=== PATIENT | male | born 1950 | race Caucasian/White ===

== ENCOUNTER 2023-10-03 04:10 | Inpatient (IN) | payer MEDICARE, OTHER, SELFPAY ==
[2023-10-03] VITALS (20 sets, daily range): BP systolic 80–121; BP diastolic 54–88; PULSE 66–80; O2SAT 100; BMI 26.5; BMI 25.4
[2023-10-03 01:17] LABS: % Basophils 0.4 % (0-2); % Eosinophils 1.9 % (0-6); % Immature Granulocytes 0.4 % (0-0.5); % Lymphocytes 17.2 % (20.5-51.1); % Neutrophils 70.1 % (42.2-75.2); Absolute Basophils 0.1 10^3/uL (0-0.2); Absolute Eosinophils 0.3 10^3/uL (0-0.7); Absolute Immature Granulocytes 0.1 10^3/uL (0-0.05); Absolute Lymphocytes 2.8 10^3/uL (1.2-3.4); Absolute Monocytes 1.6 10^3/uL (0.1-0.6); Absolute Neutrophils 11.2 10^3/uL (1.4-6.5); Hematocrit 37.7 % (39.0-52.0); Hemoglobin 13.2 g/dL (13.0-18.0); Mean Corpuscular Hgb 31.4 pg (27.0-31.0); Mean Corpuscular Volume 89.5 fL (80.0-94.0); Mean Platelet Volume 10.5 fL (7.4-10.4); Nucleated Red Blood Cells % 0 % (-); Platelet Count 183 10^3/uL (130-400); Red Blood Cell Count 4.21 10^6/uL (4.70-6.10)
--- NOTE | 2023-10-03 01:20 | ED.GENMED ---
History of Present Illness
General
Chief Complaint: Chest Pain
Source: patient and ambulance crew
Exam Limitations: none
Time Seen by Provider: 10/03/23 01:07
Nursing documentation reviewed up to this point in time: agreed with
Travel History
Have you had any contact with someone who has COVID-19?: No
Do you have any symptoms of coronavirus? Fever > 100 degrees, chills, cough, shortness of breath, sore throat, loss of taste or smell, muscle aches, or headache?: No
History of Present Illness
History of Present Illness:
This a pleasant 33-year-old male presents via EMS from home with due to chest pain. He states that the pain began around 2 PM yesterday and reports that it radiates through to his back. Patient does report that he has been having some dyspnea on
exertion but that has been going on for several months. 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 Patient does have high blood pressure and high cholesterol for which she is treated. He does
see Dr. Levin.
Past History
Past History
ED Past Medical History: HTN and Hypercholesterolemia
ED Past Surgical History: Other (left forearm degloving)
Social History
Tobacco: Non-smoker
Alcohol: None
Drug: None
Personal:
Living: with family
Employment: Employed
Family History
Family History: Other (Noncontributory)
Review of Systems
Review of Systems
Allergies reviewed?: Yes
All Other Systems: ROS reviewed and negative except as documented in HPI and ROS
Constitutional: Reports no symptoms
EENT: Reports no symptoms
Respiratory: Reports no symptoms
Cardiac: Reports chest pain and syncope
ABD/GI: Reports no symptoms
: Reports no symptoms
Musculoskeletal: Reports no symptoms
Skin: Reports no symptoms
Neurological: Reports no symptoms
Endocrine: Reports no symptoms
Hematologic/Lymphatic: Reports no symptoms
Psychiatric: Reports no symptoms
Phy Exam
General Physical Exam
General Presentation: well appearing and no apparent distress
General Skin: warm and dry
General Habitus: normal
General Mental: alert
General Hydration: appears well hydrated
ENT Exam
ENT Exam: EOMI, pharynx normal, neck supple and normocephalic
Eye Exam
Eye Exam: PERRL, cornea clear and conjunctiva normal
Cardiovascular Exam
Cardiovascular Exam: regular rate/rhythm, no edema, no murmur and normal peripheral pulses
Pulmonary Exam
Pulmonary Exam: lungs clear, no respiratory distress, no rales, no crackles, no rhonchi, no stridor, no wheezing and no cough
Gastrointestinal Exam
Gastrointestinal Exam: normal bowel sounds, non tender, soft, no organomegaly, no pulsatile mass and non distended
Neurological Exam
Neurological Exam: alert, oriented x3, no motor deficits and speech normal
Musculoskeletal Exam
Musculoskeletal Exam: full ROM and no edema
Skin Exam
Skin Exam: normal color, warm/dry, no rash and no petechia
Psychiatric Exam
Psychiatric Exam: normal mood/affect
Scores
Heart Score for Chest Pain Patients
STEMI patient?: No
History: Moderately Suspicious
ECG: Normal
Age: >/= 65 years
Risk Factors: 1 or 2 Risk Factors
Troponin: </= Normal Limit
Heart Score for Chest Pain Patients: 4
Heart Score Risk: 20.3% MACE over next 6 weeks
Course
Orders/Labs/Results
Orders:
Orders
10/03/23 01:05
Electrocardiogram (*1) Urgent
Reason for Study: Chest Pain
EKG- Treatment ONCE
10/03/23 01:11
Complete Blood Count/With Diff Urgent
Comprehensive Metabolic Panel Urgent
NT-proBNP Urgent
PTT Urgent
Prothrombin Time Urgent
TSH Urgent
Comment: ADD ON
Troponin I Urgent
10/03/23 01:17
Interrogate Pacemaker- Treatment ONCE
Comment: medtronic
10/03/23 01:18
Electrocardiogram (*1) Stat
Reason for Study: Other
Other Reason for Exam: chest pain
Cardiac Monitoring- Treatment ONCE
10/03/23 01:19
CT Chest Pe Study Urgent
Comment:
Reason For Exam: cp, dyspnea, rad toback
10/03/23 01:21
Add On- LAB Urgent
Tests Added?: tsh
10/03/23 02:33
Ondansetron Injectable [Zofran] 4 mg .ROUTE .STK-MED ONE
10/03/23 02:34
Ondansetron Injectable [Zofran] 4 mg IV NOW STA
10/03/23 02:37
Electrocardiogram (*1) Urgent
Reason for Study: Chest Pain
EKG- Treatment ONCE
10/03/23 02:42
Troponin I Urgent
10/03/23 03:53
Admit/Transfer Patient As Directed
Co-Sign Provider:
Level of Care: Inpatient admission
Assign to:: IVU
Physician / Group: Mario
Diagnosis: Syncope
Reason for Hospitalization: Syncope
Expected length of stay greater than two midnights?: Yes
ELOS- Estimated Length of Stay in days: 2
I certify the patient meets the requirements for IP care: Yes
0.9% Sodium Chloride 1000 ml [Nss] 1,000 ml IV BOLUS
0.9% Sodium Chloride 1000 ml [Nss] 1,000 ml IV BOLUS
10/03/23 03:54
Code Status As Directed
Resuscitation Status: Full Code
10/03/23 06:22
0.9% Sodium Chloride 1000 ml [Nss] 1,000 ml IV 100 mls/hr
Acetaminophen [Tylenol] 650 mg PO Q4HPRN PRN
Ondansetron Injectable [Zofran] 4 mg IV Q6HPRN PRN
10/03/23 06:22
Echo 2D MMode Doppler [Echo 2D MMode Color/Doppler] Routine
Reason for Study: Pericardial Effusion, Syncope
CARDIOLOGY CONSULT Routine
Consulting Provider: Edmundo Dillon
Was physician already notified: No
Reason for consult: Chest Pain, Syncope
Consult Notification Routine
Specialty to Notify: Cardiology
Free T4 Routine
Activity As Directed
Activity Level: Ambulate
With Assistance
Bladder Scan As Directed
Follow Bladder Retention/Intermittent Cath Algorithm?: Yes
PRN if no void in __ hours: 6
Frequency: Per Retention Algorithm
If Bladder Scan Result >: 400
then:: Straight cath
EKG with chest pain [ECG as needed] As Directed
ECG as needed for:: Chest Pain
I/O [Intake/ Output] As Directed
Frequency: Per unit guidelines
Orthostatic Vital Signs As Directed
Orthostatic VS Frequency: BID
Pneumatic Compression Sleeves As Directed
Type: Knee high
Straight Cath As Directed
Frequency: Per Retention Algorithm
Additional Instructions: straight cath as needed per acute urinary retention algorithm for 24 hrs
Additional Instructions: for bladder scan greater than 400 mL
Vital Signs As Directed
Frequency: Per unit guidelines
Weight As Directed
Frequency: Daily
Oxygen Therapy [O2 Therapy] [RESP] Routine
Titrate/Wean O2 to maintain O2 sat greater than (%): 94
Ot Eval And Treat Routine
PT Consult [Pt Eval And Treat] Routine
Activity Level: Ambulate
With Assistance
DX Deep Vein Thrombosis Video Routine
10/03/23 08:00
Aspirin Chewable [Low Strength Aspirin] 81 mg PO DAILY
10/03/23 18:00
Atorvastatin [Lipitor] 40 mg PO QPM
10/03/23 22:00
Finasteride [Proscar] 5 mg PO HS
Multivitamin [Theragran] 1 tablet PO HS
10/04/23 06:00
EKG [Electrocardiogram (*1)] IN AM
Reason for Study: Chest Pain
NPO
Allow oral meds: Yes
Allow clear liquids: Sips of Clears
Basic Metabolic Panel IN AM
Complete Blood Count/No Diff IN AM
Magnesium IN AM
Troponin I IN AM
Abnormal Lab Results
10/03/23
01:11
WBC 16.0 H 10^3/uL
(4.8-10.8)
RBC 4.21 L 10^6/uL
(4.70-6.10)
Hct 37.7 L %
(39.0-52.0)
MCH 31.4 H pg
(27.0-31.0)
MPV 10.5 H fL
(7.4-10.4)
Abs Immat Gran (auto) 0.1 H 10^3/uL
(0-0.05)
Absolute Neuts (auto) 11.2 H 10^3/uL
(1.4-6.5)
Absolute Monos (auto) 1.6 H 10^3/uL
(0.1-0.6)
Lymphocytes % 17.2 L %
(20.5-51.1)
Monocytes % 10.0 H %
(1.7-9.3)
PT 14.7 H Sec
(11.4-14.6)
BUN 21 H mg/dl
(9-20)
Glucose 160 H mg/dl
(70-99)
TSH 6.09 H uIU/ml
(0.47-4.68)
10/03/23 01:11
10/03/23 01:11
Vital Signs
Initial and Last Documented VS:
Initial Vital Signs
Pulse Resp BP Pulse Ox
60 16 112/71 100
10/03/23 01:05 10/03/23 01:05 10/03/23 01:05 10/03/23 01:05
Last Documented Vital Signs
Temp Pulse Resp BP Pulse Ox
97.8 F 68 20 86/71 99
10/03/23 06:30 10/03/23 06:30 10/03/23 06:30 10/03/23 06:00 10/03/23 06:30
*Critical Care Note
Total Time (30-74mins, 75-104mins- exclusive of procedures): Not Applicable
Update Note
Update Note:
CTA CHEST
IMPRESSION:
1. Adequate technical study. No acute pulmonary embolism.
2. No thoracic aortic aneurysm or acute aortic dissection. Bibasilar atelectasis.
Incidentals:
-Calcified coronary atherosclerosis. Moderate pericardial effusion measuring up to 9 mm.
- No acute osseous abnormality. Small hiatal hernia
- No acute abnormality within the visualized abdomen. Hepatic hypodensities, not well characterized
- No thoracic lymphadenopathy or suspicious lymph nodes.
Spoke with [employer] who stated that patient did have a brief episode of self-limited V. tach at the time of the syncopal episode.
ED Attending Note
-
Portions of this chart may have been created with voice recognition software.� Occasional wrong word or��sound alike� substitutions may have occurred due to the inherent limitations of voice recognition software.
Discharge Plan
Departure
Patient Disposition: Admit
Date of Disposition: 10/03/23
Time of Disposition: 03:09
Admit to: Telemetry
Presentation/result/management discussed w/ accepting MD/DO: Hospitalist
Discharge Problem:
Syncope
Interventions
Interventions:
*Risk Screen - Suicide Last Done: 10/03/23 01:13
*General Assessment Last Done: 10/03/23 01:12
*Neglect/Abuse Screening Last Done: 10/03/23 01:13
ED- Fall Risk Assessment Last Done: 10/03/23 01:13
*ED COVID-19 Vaccine History Last Done: 10/03/23 01:13
*Nursing Disposition Last Done: 10/03/23 06:27
ED- Cardiac Assessment Last Done: 10/03/23 01:33
Discharge Date and Time
Discharge Date/Time: 10/03/23 06:28
[2023-10-03 01:30] LABS: INR 1.17; PT 14.7 Sec (11.4-14.6)
[2023-10-03 01:31] LABS: APTT 27.6 Sec (23.4-35.0)
[2023-10-03 01:32] LABS: ALT (SGPT) 40 U/L (0-50); AST (SGOT) 29 U/L (17-59); Alkaline Phosphatase 82 U/L (38-126); Blood Urea Nitrogen 21 mg/dl (9-20); Calcium 9.3 mg/dl (8.4-10.2); Carbon Dioxide 28 mmol/L (22-30); Chloride 103 mmol/L (98-107); Estimated Creatinine Clearance 58 ml/min; Glucose 160 mg/dl (70-99); Sodium 137 mmol/L (135-145); Total Bilirubin 0.5 mg/dl (0.2-1.3); Total Protein 6.5 g/dl (6.3-8.2); eGFR > 60.00
[2023-10-03 01:44] LABS: Troponin I < 0.012 ng/ml
[2023-10-03 02:02] LABS: NT-proBNP 41.3 pg/ml
[2023-10-03 02:27] LABS: TSH 6.09 uIU/ml (0.47-4.68)
[2023-10-03] MEDS: ZOFRAN 4 MG IV (02:34)
[2023-10-03 03:12] LABS: Troponin I < 0.012 ng/ml
[2023-10-03] MEDS: NSS 1000 IV ×2 (03:53→06:42)
--- NOTE | 2023-10-03 03:58 | HPS.HSE ---
Family Physician
-
Family Physician: Adithya Ohara
Chief Complaint
-
Lightheaded, Nausea
History of Present Illness
Patient is a 73y M with PMH significant for symptomatic bradycardia s/p PPM who presents to ED complaining of chest pain, lightheadedness and nausea. History obtained from patient and his at the bedside. Patient states that he was working
on his computer yesterday afternoon - and was getting frustrated as will happen with computers - when he developed a pain in the back between his shoulder blades. This ultimately resolved. Later that evening while sitting and watching the football
game, he developed back pain that radiated anteriorly to the chest. This also lasted for several minutes before resolving.
He was preparing for bed around 11:30 PM when he began to feel lightheaded. notes that he was pale and diaphoretic. He became nauseated and had an episode of emesis. Patient was helped to bed where he lie down and felt somewhat improved. he
did not lose consciousness. Patient presented to the ED for further evaluation. While here in the ED, patient has had several additional episodes of lightheadedness, nausea, diaphoresis. He has some upper chest tightness here, but not the chest
pain or back pain he felt earlier today.
At the time of my exam, patient notes that he feels 'fine'. He is able to sit upright without lightheadedness / dizziness. He has no chest pain, nausea, etc.
His BP is presently in the 80s systolic despite his lack of symptoms.
Patient denies any prior history of similar symptoms.
He denies any prior h/o [place]. His PPM was placed 12/2022 after patient had an episode of significant pause / asystole during cataract surgery 07/2022.
Patient notes that he had some loose stools / diarrhea on Tuesday of this week. This was after eating out at a restaurant. His symptoms lasted about 24 hours and have since fully resolved.
No other recent illness, fevers / chills, cough, etc.
Medical History
Past Medical History
Past Medical History: Reports Other
Additional Past Medical History:
Sick Sinus Syndrome
Hypertension
RBBB
BPH
Past Surgical History: Reports Other
Additional Past Surgical History:
LUE Reconstructive Surgery s/p Trauma
PPM Placement
Social History
Tobacco: Non-smoker
Alcohol: Occasional (Very rare.)
Drug: None
Family History
Family History: Not pertinent
Allergies / Home Medications
Allergies reflects when Allergies were last updated in [email or web address].
Home Medications with original date entered in [email or web address]
Allergy/Medication List:
Allergies
Allergy/AdvReac Type Severity Reaction Status Date / Time
No Known Allergies Allergy Verified 01/03/23 13:06
Home Medications
finasteride 5 mg tablet 5 mg PO HS Urinary issue 08/09/22
lisinopril 10 mg tablet 10 mg PO HS Blood pressure 08/09/22
multivitamin 1 tab PO HS 12/21/22
atorvastatin 40 mg tablet 40 mg PO QPM 10/03/23
Review of Systems
-
History Source: Patient
A 12 point ROS was completed and negative except as noted: Yes
Constitutional: Denies Fever or Chills
EENT: Denies Sore Throat
Respiratory: Reports Trouble Breathing; Denies Cough
Cardiac: Reports Chest Pain, Diaphoresis and Syncope (Near-syncope); Denies Palpitations
Abdomen/GI: Reports Nausea and Vomiting; Denies Abdominal Pain, Bloody Stools or Black Stools
: Denies Dysuria, Frequency or Flank Pain
Musculoskeletal: Denies Joint Pain or Edema
Neurological: Reports Dizzy; Denies Headache, Weakness or Numbness
Psych: Denies Depression or Anxiety
Physical Exam
Vital Signs
Vital Signs
Pulse Resp BP Pulse Ox
71 19 84/54 99
10/03/23 03:45 10/03/23 03:45 10/03/23 03:32 10/03/23 03:45
Physical Exam
General: Other (73y M in no acute distress.)
HEENT: Moist mucous membranes and PERRLA
Respiratory: Clear; No Wheezes, Rales or Rhonchi
Cardiac: S1/S2 and Regular Rhythm; No Murmur
GI: Soft, Non Tender, Non Distended and Normal Bowel Sounds
Musculoskeletal: No Clubbing, No Cyanosis and No Edema
Neuro: AO x 3 and Nonfocal/grossly intact
Laboratory Results
-
10/03/23 01:11
10/03/23 01:11
Laboratory Results
PT 14.7 Sec (11.4-14.6) H 10/03/23 01:11
INR 1.17 10/03/23 01:11
APTT 27.6 Sec (23.4-35.0) 10/03/23 01:11
Total Bilirubin 0.5 mg/dl (0.2-1.3) 10/03/23 01:11
AST 29 U/L (17-59) 10/03/23 01:11
ALT 40 U/L (0-50) 10/03/23 01:11
Alkaline Phosphatase 82 U/L (38-126) 10/03/23 01:11
Troponin I < 0.012 ng/ml 10/03/23 02:42
Impression/Plan
-
A/P: Patient is a 73y M with PMH significant for SSS s/p PPM who presents to ED complaining of chest pain and near-syncopal episode at home this evening.
Near Syncope
Chest Pain
Hypotension
NSVT
Pericardial Effusion
- Admit for further evaluation and treatment.
- Patient describes vasovagal sounding symptoms with diaphoresis, N/V and lightheadedness.
- Had back pain and chest pain earlier in the evening and some chest tightness and SOB associated with near-syncopal event.
- EKG here is unremarkable. Trop is negative x 2.
- PPM interrogated and shows very brief episodes of NSVT occasionally - last was 10/02 at 00:46 AM, 24 hours prior to current symptoms.
- Had several episodes of similar symptoms here in the ED without arrhythmia on tele.
- He is currently hypotensive with BP in the 80s.
- CTA chest done in the ED shows no PE, dissection, pneumonia, etc - but does show moderate pericardial effusion.
- ? pericarditis / pericardial effusion s/o recent GI illness?
- IVF support and follow BP.
- Check Echo in AM.
- Cardio evaluation for additional recommendations / work-up.
- Follow for any new / recurrent symptoms.
Leukocytosis
- ? stress response. ? related to pericardial effusion, etc.
- No left shift. Predominance of monocytes.
- Patient is afebrile and without other focal / infectious symptoms.
- Follow for changes in WBC.
- Follow for any new symptoms.
Benign Hypertension
- Currently hypotensive.
- Hold lisinopril for now.
- Follow BP and restart / resume when appropriate.
BPH
- Stable. Continue finasteride.
Elevated TSH
- TSH mildly elevated at 6.09.
- Check free T4.
DVT Prophylaxis: SCDs
Code Status: Full
--- NOTE | 2023-10-03 06:47 | PTCARENOTE ---
received patient from the ED. at the bedside. ambulating independently. denies any lightheadedness/dizziness. SR 70s with a BBB. bp stable. +pulses/no edema. reviewed plan of care with patient and spouse. patient eager to leave tomorrow for a 3
week trip that has been planned. NPO. call olmos within reach.
[2023-10-03] MEDS: LOW STRENGTH ASPIRIN 81 MG PO (08:23)
[2023-10-03] MEDS: PROTONIX IV 40 MG IV (08:23)
[2023-10-03] MEDS: NSS (PRESERVATIVE FREE) 10 ML IV (08:24)
--- NOTE | 2023-10-03 08:26 | W.PN.HOSP.TC ---
Today's Communication/Plan
-
Monitor BP closely
Possible discharge tomorrow
It is unsafe for patient to travel until outpatient follow-up with cardiology and repeat echocardiogram is done in 1 week. Also he has had hypotension on admission which also makes it unsafe for him to travel at this time.
Assessment / Plan
Assessment / Plan
Physical Exam
General: Not in acute distress
HEENT: Moist mucous membranes
Respiratory: Clear to Auscultation Bilaterally
Cardiac: S1/S2 and Regular Rhythm
GI: Soft, Non Tender, Non Distended and Normal Bowel Sounds
Musculoskeletal: No Cyanosis and No Edema
Neuro: AAO x 3 and Nonfocal/grossly intact

A/P
Patient is a 73 y/o male with past medical history significant for SSS s/p PPM who presents to ED complaining of chest pain and near-syncopal episode at home shortly before presentation.
Near Syncope
Bilateral Shoulder and Chest Pain
Hypotension
NSVT
History of Bradycardia with Pacemaker
Dizziness
Small to Moderate Pericardial Effusion with episode of hypotension with SBP in the 80s mmHg
New Pulmonary Hypertension
Suspected Pericarditis Likely from Viral Syndrome
�- Patient describes vasovagal sounding symptoms with diaphoresis, N/V and lightheadedness.
�- Had back pain and chest pain earlier in the evening of presentation and some chest tightness and SOB associated with near-syncopal event.
�- PPM interrogated and shows very brief episodes of NSVT occasionally - last was 10/02 at 00:46 AM, 24 hours prior to current symptoms.
�- Had several episodes of similar symptoms in the ED without arrhythmia on tele.
�- CTA chest done in the ED shows no PE, dissection, pneumonia, etc - but does show moderate pericardial effusion.
�- ? pericarditis / pericardial effusion s/o recent GI illness?
�- Monitor without intravenous fluids
- Continue Colchicine and NSAID taper
�- Cardio evaluation for additional recommendations / work-up.
�- Monitor magnesium and basic metabolic panel
- Not safe for patient to travel at this time
- Repeat echocardiogram in 1 week
Right Bundle Branch Block
Leukocytosis
Recent Gastrointestinal Illness less than 1 week prior to presentation
�- ? stress response.� ? related to pericardial effusion, etc.
- Viral Syndrome?
�- No left shift.� Predominance of monocytes.
�- Patient is afebrile and without other focal / infectious symptoms.
�- Follow for changes in WBC.
�- Follow for any new symptoms.
Hyperlipidemia
- Continue statin
Benign Hypertension
�- Currently hypotensive.
�- Hold lisinopril for now.
�- Per cardiology, start beta efren: Toprol XL 25 mg QPM
BPH
�- Stable.� Continue finasteride.
Elevated TSH
�- TSH mildly elevated at 6.09.
�- Follow-up on free T4.
DVT Prophylaxis:� SCDs
Code Status:� Full
Anticipated Discharge: 24 - 48 hours
Subjective/Interval History
-
Date of Service: October 03, 2023
Patient was seen and examined. He reported no chest pain, shortness of breath or any other new complaints.
Objective Data
-
Labs:
Laboratory Results
10/03/23
01:11
WBC 16.0 H
Hgb 13.2
Hct 37.7 L
Plt Count 183
PT 14.7 H
INR 1.17
APTT 27.6
Sodium 137
Potassium 4.0
Chloride 103
Carbon Dioxide 28
BUN 21 H
Creatinine 1.1
Glucose 160 H
Calcium 9.3
Total Bilirubin 0.5
AST 29
ALT 40
Alkaline Phosphatase 82
Vital Signs:
Vital Signs
Temp Pulse Resp BP Pulse Ox
97.8 F 68 20 86/71 99
10/03/23 06:30 10/03/23 06:30 10/03/23 06:30 10/03/23 06:00 10/03/23 06:30
--- NOTE | 2023-10-03 08:47 | CON.CAR ---
Addendum entered and electronically signed by Brittany Hu MD 10/03/23 11:12:
I saw and examined the patient.
The TICKET MACHINE OPERATOR's note was reviewed and I agree with the note.
Comment: 72-year-old male with a history of bradycardia and pacemaker, right bundle branch block, hypertension hyperlipidemia presented for evaluation of bilateral shoulder pain that began to involve his chest that was worse with inspiration and
lying flat. He had recent GI illness on Tuesday. CT scan was done ruling out PE in the ED but we are consulted given the finding of moderate pericardial effusion. Currently he is feeling better. But of note, he was mildly hypotensive
throughout the night. He was volume resuscitated with improvement. On exam he has a regular rate and rhythm with a normal S1-S2 no murmur rubs or gallops are appreciated JVP was flat, lungs were clear to auscultation bilaterally. Echocardiogram
was just completed. It shows a small to moderate pericardial effusion with a dilated IVC that does not collapse, no evidence of hemodynamic significance. However there is new pulmonary hypertension. Overall findings are all concerning for
pericarditis. Will treat with colchicine and NSAID taper. CT scan was done to rule out PE. Suspect this is all into a viral syndrome. He reports that he is going on a cruise tomorrow for 3 weeks. However, I recommend he do not depart on any
voyage is without appropriate follow-up. Would first like to repeat his echo in 1 week to ensure no worsening. Relative hypotension overnight, makes travel unsafe.
Would monitor blood pressure over the course of the day. If feeling better, could consider discharge later tonight versus tomorrow.
Original Note:
Consultation
Consultation Request
Date/Time Consultation Requested: 10/03/23621
Date/Time Consultation Performed: 10/03/23829
Requesting Provider: Dr. Martin
Performing Provider: Natalia CASTANO for Dr. Hu
Reason for Consultation: chest discomfort, dizziness
Medical History
-
Chief Complaint: chest discomfort, dizziness
History of Present Illness:
73 y/o male with bradycardia/pacemaker, RBBB, hypertension, and dyslipidemia who is here for evaluation after he developed shoulder discomfort yesterday when he was frustrated with a computer problem. Later during the game, it seemed to come to the
front of his chest on and off during the Superbowl. He showered, then got into bed where he felt very hot and had nausea and sweating and paleness. CT scan has revealed moderate pericardial effusion. BP was on low end here, but currently looks good
and patient appears quite well and is in no distress at the time of my assessment. CP was worse with laying and inspiration. Yesterday AM, he walked 2 miles without difficulty.
Past Medical History
Past Medical History: HTN, Hypercholesterolemia and Other (RBBB, pacemaker, BPH)
Social History
Tobacco: Non-Smoker
Personal:
Family History
Family History: Early CAD (dad [place] age 58)
Allergies / Home Medications
Allergy/AdvReac Type Severity Reaction Status Date / Time
No Known Allergies Allergy Verified 01/03/23 13:06
Medication Instructions Recorded Confirmed Type
finasteride 5 mg tablet 5 mg PO HS Urinary issue 08/09/22 10/03/23 History
lisinopril 10 mg tablet 10 mg PO HS Blood pressure 08/09/22 10/03/23 History
multivitamin 1 tab PO HS 12/21/22 10/03/23 History
atorvastatin 40 mg tablet 40 mg PO QPM 10/03/23 10/03/23 History
Review of Systems
-
History Source: Patient
All other systems: Negative unless noted
Cardiac: Chest Pain and Diaphoresis
Musculoskeletal: Other (shoulder pain)
Neurological: Dizzy
Physical Exam
Vital Signs
Temp Pulse Resp BP Pulse Ox
97.8 F 68 20 86/71 99
10/03/23 06:30 10/03/23 06:30 10/03/23 06:30 10/03/23 06:00 10/03/23 06:30
Lab Results
10/03/23 01:11
10/03/23 01:11
Troponin I < 0.012 ng/ml 10/03/23 02:42
Lsx-X-Ljaqihvbzvw Pept 41.3 pg/ml 10/03/23 01:11
Physical Exam
General: Well Developed, Well Nourished and No Apparent Distress
HEENT: Normocephalic and Anicteric
Respiratory: Clear and Non Labored Respirations
Cardiac: Regular Rhythm
Breast: Deferred by me
GI: Soft, Non Distended and Normal Bowel Sounds
Rectal: Deferred by Provider
Musculoskeletal: No Edema
Skin: Warm and Dry
Neuro: AO x 3
Psych: Calm
Impression / Plan
-
Chest discomfort: none presently
-worse with inspiration and laying, though none currently
-trops normal, EKG's are stable
-CT scan with moderate pericardial effusion; check echo
-suspect pericarditis- will add colchicine. Likely NSAIDs too, but will see what echo shows.
-Add CRP
-of note, patient had recent GI illness
Dizziness:
-tele stable, pacemaker check okay- see details below
-getting IVF now, but was on low end, now much better 121/80
NSVT:
-noted on device checks in past as well. Last one was 10/02/23 in AM 00:46 lasting 1 second- Not consistent with timing of symptoms.
-check echo
-most recent echo and stress as below
-potassium good, check mag
-transition from ACEI to BB
Pacemaker:
-battery and leads stable on device check
RBBB:
-chronic, stable
HTN:
-BP was on low end, now better
-will stop ACEI and start BB as above
Leukocytosis:
-unclear etiology
-w/u per primary team
-recent GI illness
HLD:
-continue statin
Abnormal TSH:
-free t4 is pending
Data Reviewed
-
EKG: Tracing Personally Visualized and interpreted (SR with RBBB, stable)
CT Scan: Report Reviewed by me ( No evidence of pulmonary embolism or thoracic aortic dissection. 2. Moderate pericardial effusion, measuring 1 cm in greatest thickness. 3. Moderate hiatal hernia without evidence of incarceration. 4. Small lung
nodule within the right middle lobe, measuring 3 mm in diameter. )
Medical Tests (Nuc Med, Echo etc): Report Reviewed by me (echo 08/07/22: Normal biventricular size and systolic function without regional wall motion abnormality. Mitral annular calcification. Mild tricuspid regurgitation.)
Labs: Labs Reviewed by me
--- NOTE | 2023-10-03 09:16 | PTCARENOTE ---
patient talking with family, monitor shows NSR/Apacing, VSS. patient voices no complaints. IV NSS @100cc/hr infusing without difficulties.Echo completed at bedside. Natalia Ruiz MERCHANDISER SEASONAL in room talking to patient.
[2023-10-03] MEDS: COLCHICINE 0.599999999999999978 MG PO ×2 (10:39→20:32)
[2023-10-03 10:45] LABS: Magnesium 1.9 mg/dl (1.6-2.3)
--- NOTE | 2023-10-03 13:57 | CM ---
spoke to pt and in room, he is prev indep, lives with his in a 2 story home with no steps to enter. he denies any dc planning needs. he has a cane and a walker at home to use if needed. plan is for dc to home when medically stable.
--- NOTE | 2023-10-03 14:29 | PTCARENOTE ---
IV NSS D/C'd, as ordered.
[2023-10-03] MEDS: MOTRIN 600 MG PO ×2 (15:59→21:13)
[2023-10-03] MEDS: LIPITOR 40 MG PO (17:54)
[2023-10-03] MEDS: TOPROL XL 25 MG PO (17:54)
--- NOTE | 2023-10-03 20:00 | PTCARENOTE ---
NSR with BBB and occasional APaced. SBP 90s, patient asymptomatic. Assessment per flowsheet. Pt denies pain.
[2023-10-03] MEDS: PROSCAR 5 MG PO (21:13)
[2023-10-03] MEDS: THERAGRAN 1 TABLET PO (21:13)
[2023-10-03 21:44] LABS: Free T4 1.18 ng/dl (0.78-2.19)
[2023-10-04 04:32] VITALS: BP 104/71
[2023-10-04 05:02] LABS: % Basophils 0.4 % (0-2); % Eosinophils 1.8 % (0-6); % Immature Granulocytes 0.5 % (0-0.5); % Neutrophils 57.3 % (42.2-75.2); Absolute Eosinophils 0.2 10^3/uL (0-0.7); Absolute Immature Granulocytes 0.1 10^3/uL (0-0.05); Absolute Lymphocytes 3.2 10^3/uL (1.2-3.4); Absolute Monocytes 1.2 10^3/uL (0.1-0.6); Absolute Neutrophils 6.4 10^3/uL (1.4-6.5); Hematocrit 34.5 % (39.0-52.0); Hemoglobin 11.7 g/dL (13.0-18.0); Mean Corp Hgb Conc. 33.9 g/dL (33.0-37.0); Mean Corpuscular Hgb 31.2 pg (27.0-31.0); Nucleated Red Blood Cells % 0 % (-); Platelet Count 162 10^3/uL (130-400); Red Blood Cell Count 3.75 10^6/uL (4.70-6.10); Red Cell Dist. Width 14.5 % (11.5-14.5); White Blood Cell Count 11.1 10^3/uL (4.8-10.8)
--- NOTE | 2023-10-04 05:14 | PTCARENOTE ---
Apaced throughout night. VS remain stable. SBP >100. Routine EKG obtained this AM reading STEMI. CV Vladimir VEGA aware - reviewed chart - consistent with pericarditis.
[2023-10-04 05:34] VITALS: BMI 25.9
[2023-10-04 05:38] LABS: Troponin I 0.118 ng/ml
[2023-10-04 05:39] LABS: ALT (SGPT) 36 U/L (0-50); AST (SGOT) 28 U/L (17-59); Albumin 3.4 g/dl (3.5-5.0); Alkaline Phosphatase 72 U/L (38-126); Blood Urea Nitrogen 21 mg/dl (9-20); Calcium 8.9 mg/dl (8.4-10.2); Carbon Dioxide 25 mmol/L (22-30); Chloride 107 mmol/L (98-107); Estimated Creatinine Clearance 80 ml/min; Glucose 113 mg/dl (70-99); Magnesium 1.9 mg/dl (1.6-2.3); Potassium 4.5 mmol/L (3.5-5.1); Sodium 134 mmol/L (135-145); Total Bilirubin 0.7 mg/dl (0.2-1.3); Total Protein 5.7 g/dl (6.3-8.2); eGFR > 60.00
[2023-10-04 07:00] VITALS: BP 117/76
[2023-10-04] MEDS: NSS (PRESERVATIVE FREE) 10 ML IV (07:45)
[2023-10-04] MEDS: PROTONIX IV 40 MG IV (07:45)
[2023-10-04] MEDS: MOTRIN 600 MG PO ×2 (07:45→16:06)
[2023-10-04] MEDS: COLCHICINE 0.599999999999999978 MG PO (07:45)
--- NOTE | 2023-10-04 08:00 | W.PN.CD ---
Today's Communication / Plan
-
- NSAIDs/colchicine
- Check troponin at 11
Impression / Plan
-
Impression: 72-year-old male with a history of bradycardia and pacemaker, right bundle branch block, hypertension hyperlipidemia presented for evaluation of bilateral shoulder pain that began to involve his chest that was worse with inspiration and
lying flat.� Echocardiogram shows a small to moderate pericardial effusion with a dilated IVC that does not collapse, no evidence of hemodynamic significance.�EKG shows ST elevation.
Plan:
Chest discomfort -> seems like pericarditis/myopericarditis
- resolved
- NSAIDs/colchicine
- Check troponin at 11
Dizziness: resolved
NSVT: none now
Pacemaker:
-battery and leads stable on device check
RBBB:
-chronic, stable
HTN:
-BP was on low end, now better
-will stop ACEI and start BB as above
Leukocytosis:
-unclear etiology
-w/u per primary team
-recent GI illness
HLD:continue statin
Abnormal TSH:
-free t4 is pending
He also reports some CP with exertional that preceded this events and was qualitatively different. Will need to sort that out as OP
Dispo
- check second troponin
- d.c. home if stable
- I educated him on symptoms to look at for
- Echo in one week to check effusion
Subjective: No CP, palps, dyspnea. No LH or dizziness
Physical Exam
Vital Signs/Labs
Vital Signs
Temp Pulse Resp BP Pulse Ox
36.5 C 65 14 117/76 98
10/04/23 06:58 10/04/23 07:00 10/04/23 06:58 10/04/23 07:00 10/04/23 06:58
10/03/23 10/04/23 10/05/23
06:59 06:59 06:59
Actual Weight 167 lb 1.766 oz 170 lb 3.15 oz
10/04/23 04:52
10/04/23 04:52
PT 14.7 Sec (11.4-14.6) H 10/03/23 01:11
INR 1.17 10/03/23 01:11
APTT 27.6 Sec (23.4-35.0) 10/03/23 01:11
Magnesium 1.9 mg/dl (1.6-2.3) 10/04/23 04:52
TSH Cancelled 10/03/23 01:17
Free T4 Cancelled 10/03/23 06:22
10/03/23
01:11
Chb-K-Qnqqdqfssvl Pept 41.3
LAB Results
10/03/23 10/03/23 10/04/23
01:11 02:42 04:52
Troponin I < 0.012 < 0.012 0.118 H*
Physical Exam
Constitutional: No acute distress and Comfortable
EENT: Anicteric and Moist mucous membranes
Cardiovascular: Rhythm & rate is regular, Pedal edema is absent, JVD pressure is normal, Systolic murmur absent and Diastolic murmur absent
Respiratory: Respiratory effort normal
GI: Soft, Distention absent, Non tender and Normal bowel sounds
Neuro/Psych: Alert
Data Reviewed
-
Date of Service: October 04, 2023
EKG: Other (tele with AP)
[2023-10-04 11:16] VITALS: BP 122/78
[2023-10-04 11:18] VITALS: BP 128/82
[2023-10-04 11:19] VITALS: BP 120/69; BP 122/78; BP 128/82; PULSE 62; PULSE 65; PULSE 71
[2023-10-04 11:20] VITALS: BP 120/69
[2023-10-04 13:05] LABS: Troponin I 0.147 ng/ml
--- NOTE | 2023-10-04 13:34 | W.PN.HOSP.TC ---
Addendum entered and electronically signed by Иван Bonner MD 10/07/23 11:04:
STEMI is not a valid diagnosis for this patient
Non [place] troponin elevation
Original Note:
Today's Communication/Plan
-
Continue NSAIDs and Colchicine
Appreciate cardiology
Assessment / Plan
Assessment / Plan
Physical Exam
General: Not in acute distress
HEENT: Moist mucous membranes
Respiratory: Clear to Auscultation Bilaterally
Cardiac: S1/S2 and Regular Rhythm
GI: Soft, Non Tender, Non Distended and Normal Bowel Sounds
Musculoskeletal: No Cyanosis and No Edema
Neuro: AAO x 3 and Nonfocal/grossly intact

A/P
Patient is a 73 y/o male with past medical history significant for SSS s/p PPM who presents to ED complaining of chest pain and near-syncopal episode at home shortly before presentation.
Near Syncope
Bilateral Shoulder and Chest Pain - RESOLVED
Hypotension
NSVT
History of Bradycardia with Pacemaker
Dizziness
Small to Moderate Pericardial Effusion with episode of hypotension with SBP in the 80s mmHg
New Pulmonary Hypertension
Suspected Pericarditis Likely from Viral Syndrome
�- Patient described vasovagal sounding symptoms with diaphoresis, N/V and lightheadedness.
�- Had back pain and chest pain earlier in the evening of presentation and some chest tightness and SOB associated with near-syncopal event.
�- PPM interrogated and shows very brief episodes of NSVT occasionally - last was 10/02 at 00:46 AM, 24 hours prior to current symptoms.
�- Had several episodes of similar symptoms in the ED without arrhythmia on tele.
�- CTA chest done in the ED shows no PE, dissection, pneumonia, etc - but does show moderate pericardial effusion.
�- ? pericarditis / pericardial effusion s/o recent GI illness?
�- Monitor without intravenous fluids
- Continue Colchicine and NSAID
�- Cardio evaluation for additional recommendations / work-up.
�- Monitor magnesium and basic metabolic panel
- Not safe for patient to travel at this time
- Repeat echocardiogram in 1 week
Right Bundle Branch Block
Leukocytosis
Recent Gastrointestinal Illness less than 1 week prior to presentation
�- ? stress response.� ? related to pericardial effusion, etc.
- Viral Syndrome?
�- No left shift.� Predominance of monocytes.
�- Patient is afebrile and without other focal / infectious symptoms.
�- Follow for changes in WBC.
�- Follow for any new symptoms.
Hyperlipidemia
- Continue statin
Benign Hypertension
�- Currently normotensive
�- Hold lisinopril for now.
�- Per cardiology, start and continue beta efren: Toprol XL 25 mg QPM
BPH
�- Stable.� Continue finasteride.
Elevated TSH
�- TSH mildly elevated at 6.09.
�- Follow-up on free T4.
DVT Prophylaxis:� SCDs
Code Status:� Full
Anticipated Discharge: Within 24 hours
Subjective/Interval History
-
Date of Service: October 04, 2023
Patient was seen and examined. He reported no new chest pain, shortness of breath or any other complaints.
Objective Data
-
Labs:
Laboratory Results
10/04/23
04:52
WBC 11.1 H
Hgb 11.7 L
Hct 34.5 L
Plt Count 162
Sodium 134 L
Potassium 4.5
Chloride 107
Carbon Dioxide 25
BUN 21 H
Creatinine 0.8
Glucose 113 H
Calcium 8.9
Total Bilirubin 0.7
AST 28
ALT 36
Alkaline Phosphatase 72
Vital Signs:
Vital Signs
Temp Pulse Resp BP Pulse Ox
97.6 F 84 16 120/69 96
10/04/23 11:16 10/04/23 11:20 10/04/23 11:16 10/04/23 11:20 10/04/23 11:16
I&O
10/03/23 10/04/23 10/05/23
06:59 06:59 06:59
Intake Total 940 / 940
Balance 940 / 940
--- NOTE | 2023-10-04 15:33 | W.DS.TRANS ---
DC Summary - Bracelet Maker Novelty
-
Discharge Instructions:
Discharge Diagnosis/Procedures Near Syncope
Bilateral Shoulder and Chest Pain - RESOLVED -
likely from pericarditis
Hypotension
Non-Sustained Ventricular Tachycardia
History of Bradycardia with Pacemaker
Dizziness
Small to Moderate Pericardial Effusion with
hypotension with systolic blood pressure in the
80s mmHg
New Pulmonary Hypertension
Suspected Pericarditis Likely from Viral
Syndrome
Right Bundle Branch Block
Leukocytosis
Recent Gastrointestinal Illness less than 1 week
prior to presentation
Hyperlipidemia
Benign Hypertension
Benign Prostatic Hyperplasia
Elevated Thyroid Stimulating Hormone
Diet As tolerated
Activity As tolerated
Driving Restrictions Not until seen by your Dr
Others Tests Echo Tuesday10/10/23 at 9:30 AM at [facility]- please arrive 15 minutes early.
Instructions: Pulmonary hypertension
Pulmonary Hypertension, Adult (DC)
Colchicine
Ibuprofen
Pericardial Effusion
Ibuprofen
Pericarditis
Stand-Alone Forms:
Changes to Home Medications: Yes
Discharge Medications:
DC Medications w/original date entered in adQ
finasteride 5 mg tablet 5 mg PO HS Urinary issue 08/09/22
lisinopril 10 mg tablet 10 mg PO HS Blood pressure 08/09/22
multivitamin 1 tab PO HS Supplement 12/21/22
atorvastatin 40 mg tablet 40 mg PO QPM High Cholesterol 10/03/23
colchicine 0.6 mg tablet 0.6 mg PO BID #60 tabs 10/04/23
ibuprofen 600 mg tablet 600 mg PO Q8H #39 tabs 10/04/23
metoprolol succinate 25 mg tablet,extended release 24 hr 25 mg PO QPM #30 tabs 10/04/23
Home Medication Changes
Colchicine, Ibuprofen and Metoprolol Succinate are all new
Lisinopril is on hold for now due to softer blood pressures
Pending Results: No
Total time spent discharging patient (in min): 45
--- NOTE | 2023-10-05 07:50 | PN.CDI ---
CDI
- -
CDI:
Physician Documentation Request
Admit Date: 10/03/23 04:10
Dear Doctor Kailey,
The diagnosis of acute [place]/STEMI was included in the signed EKG 10/04
Please indicate in your progress notes if you are in agreement that the above diagnosis is valid for this patient:
____ - STEMI is a valid diagnosis (Please include it in your progress notes)
____ - STEMI is not a valid diagnosis for this patient
____ - Other
Use of terms such as suspected, likely, concern for, or probable are acceptable for a diagnosis that is being evaluated, monitored or treated as if it exists and can be coded in the inpatient setting, when documented at the time of discharge.
Thank you,
Britany Whiteside RN, BSN
CDI Specialist
tiger text
Please use your independent medical judgment in providing your response.
--- NOTE | 2023-10-05 07:52 | PN.CDI ---
CDI
- -
CDI:
Physician Documentation Request
Admit Date: 10/03/23 04:10
Dear Doctor Kailey,
Patient presented to ED from home due to chest pain, this was felt to be from suspected pericarditis likely from viral syndrome
Troponin's resulted as follows:
10/03/23 10/04/23 10/04/23
02:42 04:52 12:32
Troponin I < 0.012 0.118 H* 0.147 H*
Based on the above, could you provide a diagnosis that supports the above abnormalities and additional evaluation/monitoring:
Non [place] troponin elevation
Type II [place] demand ischemia
STEMI
Other
Use of terms such as suspected, likely, concern for, or probable (associated with a specific diagnosis that is being evaluated, monitored, or treated as if it exists) are acceptable and can be coded in the inpatient setting, when documented at the
time of discharge.
Thank you,
Britany Whiteside RN, BSN
CDI Specialist
tiger text
Please use your independent medical judgment in providing your response.
--- NOTE | 2023-10-07 11:06 | W.DCSUMMARY ---
Discharge Summary
Discharge Data
Date of Admission: 10/03/23
Date of Discharge: 10/04/23
Total time spent discharging patient (in min): 45
-
Pending Results: No
Hospital Course
73 y/o male who presented reporting chest pain, upper back pain, lightheadedness, vomiting and nausea. CTA Chest imaging was done in the emergency room. Patient was found to have pericardial effusion and hypotension. Patient was given intravenous
fluids. Patient's pacemaker was interrogated and showed very brief episodes of non-sustained ventricular tachycardia. Cardiology was consulted. Echocardiogram as per cardiology report showed small to moderate pericardial effusion (1.2cm largest
pocket). Patient was started on treatment for pericarditis/myopericarditis, with Colchicine and Ibuprofen. Patient's Lisinopril was and he was started on a beta-efren. Patient was instructed that he would have to have a repeat echocardiogram done
within 1 week.
Discharge Plan
-
Patient Disposition: Home (Routine Discharge)
Discharge Diagnosis/Procedures: Small lung nodule within the right middle lobe, measuring 3 mm in diameter on CT imaging
Moderate hiatal hernia on CT imaging
Near Syncope
Bilateral Shoulder and Chest Pain - RESOLVED - likely from pericarditis
Hypotension
Non-Sustained Ventricular Tachycardia
History of Bradycardia with Pacemaker
Dizziness
Small to Moderate Pericardial Effusion with hypotension with systolic blood pressure in the 80s mmHg
New Pulmonary Hypertension
Suspected Pericarditis Likely from Viral Syndrome
Right Bundle Branch Block
Leukocytosis
Recent Gastrointestinal Illness less than 1 week prior to presentation
Hyperlipidemia
Benign Hypertension
Benign Prostatic Hyperplasia
Elevated Thyroid Stimulating Hormone
Condition: Fair
Diet: As tolerated
Activity: As tolerated
Driving Restrictions: Not until seen by your Dr
Others Tests: Echo Tuesday10/10/23 at 9:30 AM at [facility]- please arrive 15 minutes early.
Activity Restrictions/Additional Instructions:
Please read carefully all of the handout instructions that will be printed out for you (e.g. handouts on pericardial effusion, Colchicine, pericarditis, etc.)
Follow-up with cardiology within 1 week or so -- THIS IS VERY IMPORTANT THEY WILL NEED DETERMINE A TAPERING PLAN FOR YOUR IBUPROFEN AND MONITOR YOUR PERICARDIAL EFFUSION
Instructions: Pulmonary hypertension, Pulmonary Hypertension, Adult (DC), Colchicine, Ibuprofen, Pericardial Effusion, Ibuprofen, Pericarditis
Referrals:
Vida Ascencio CRNP [Specified Professional Personl] - 10/11/23 2:20 pm
Adithya Ohara MD [Family Provider] - in less than 1 week
Prescriptions:
New
colchicine 0.6 mg Tablet
0.6 mg PO BID Qty: 60 2RF
ibuprofen 600 mg Tablet
600 mg PO Q8H Qty: 39 0RF
metoprolol succinate 25 mg Tablet Extended Release 24 Hr
25 mg PO QPM Qty: 30 1RF
Continued
finasteride 5 mg Tablet
5 mg PO HS
multivitamin Tablet
1 tab PO HS
atorvastatin 40 mg Tablet
40 mg PO QPM
Held
lisinopril 10 mg tablet
10 mg PO HS
Hold Instructions: Resume on 10/11/23. Resume only if you primary care provider and civil rights attorney say it is okay to resume this medication
Discharge Orders:
Discharge Patient (As Directed); Ordered 10/04/23
Ordered By: Иван Bonner
Care Plan Goals
Care Plan Goals:
Problem: Readiness for enhanced knowledge related to diagnosis and treatment plan
Goal: Understand your diagnosis and treatment plan needs, including medications if applicable.
Instructions: Know your diagnosis, underlying causes and treatment plan options, including medications if applicable. Consult with your health care team to learn about your diagnosis and treatment plan, including medications if applicable.
Discharge Date and Time
Discharge Date/Time: 10/04/23 17:43
== END 2023-10-04 17:43 | disposition home or self-care (01) | DRG 315 ==
LOC: IVU 04:10
PROVIDERS: Internal Medicine Cardiovascular Disease; ADMITTING PHYSICIAN Hospitalist; ATTENDING PHYSICIAN Hospitalist; EMERGENCY PHYSICIAN Student in an Organized Health Care Education/Training Program; FAMILY PHYSICIAN Family Medicine; OTHER PHYSICIAN Internal Medicine Cardiovascular Disease
DX: I27.20 Pulmonary hypertension, unspecified (principal); I31.39 Other pericardial effusion (noninflammatory); I47.20 Ventricular tachycardia, unspecified; I5A Non-ischemic myocardial injury (non-traumatic); I25.10 Atherosclerotic heart disease of native coronary artery without angina pectoris; K44.9 Diaphragmatic hernia without obstruction or gangrene; I10 Essential (primary) hypertension; I95.9 Hypotension, unspecified; I45.10 Unspecified right bundle-branch block; E78.5 Hyperlipidemia, unspecified
CPT/HCPCS: 71275; 80053; 83735; 83880; 84439; 84443; 84484; 85025; 85610; 85730; 86140; 93005; 93306; 96361; 96374; 97162; 97166; 99285; Q9967

== ENCOUNTER → 2023-10-10 09:07 | Outpatient (REF) | payer MEDICARE, OTHER, SELFPAY | LOC: RCS 09:07 | PROVIDERS: ATTENDING PHYSICIAN Internal Medicine Cardiovascular Disease | DX: I31.39 Other pericardial effusion (noninflammatory) (principal) | CPT/HCPCS: 93306 ==

== ENCOUNTER 2023-11-19 20:12 | Emergency (ER) | payer MEDICARE, OTHER, SELFPAY ==
[2023-11-19 20:15] VITALS: BP 158/99
[2023-11-19 21:09] LABS: % Basophils 0.7 % (0-2); % Eosinophils 4.1 % (0-6); % Immature Granulocytes 0.1 % (0-0.5); % Lymphocytes 36.9 % (20.5-51.1); % Monocytes 11.1 % (1.7-9.3); % Neutrophils 47.1 % (42.2-75.2); Absolute Basophils 0.1 10^3/uL (0-0.2); Absolute Eosinophils 0.3 10^3/uL (0-0.7); Absolute Monocytes 0.9 10^3/uL (0.1-0.6); Absolute Neutrophils 3.8 10^3/uL (1.4-6.5); Hematocrit 41.1 % (39.0-52.0); Hemoglobin 13.5 g/dL (13.0-18.0); Mean Corp Hgb Conc. 32.8 g/dL (33.0-37.0); Mean Corpuscular Hgb 30.4 pg (27.0-31.0); Mean Corpuscular Volume 92.6 fL (80.0-94.0); Mean Platelet Volume 11.5 fL (7.4-10.4); Nucleated Red Blood Cells % 0 % (-); Platelet Count 150 10^3/uL (130-400); Red Blood Cell Count 4.44 10^6/uL (4.70-6.10); Red Cell Dist. Width 14.7 % (11.5-14.5); White Blood Cell Count 8.1 10^3/uL (4.8-10.8)
[2023-11-19 21:25] LABS: ALT (SGPT) 48 U/L (0-50); AST (SGOT) 37 U/L (17-59); Albumin 4.5 g/dl (3.5-5.0); Alkaline Phosphatase 76 U/L (38-126); Blood Urea Nitrogen 22 mg/dl (9-20); Carbon Dioxide 31 mmol/L (22-30); Chloride 101 mmol/L (98-107); Glucose 127 mg/dl (70-99); Potassium 4.9 mmol/L (3.5-5.1); Sodium 139 mmol/L (135-145); Total Bilirubin 0.3 mg/dl (0.2-1.3); Total Protein 7.1 g/dl (6.3-8.2); eGFR > 60.00
[2023-11-19 21:36] LABS: NT-proBNP 64.4 pg/ml; Troponin I < 0.012 ng/ml
[2023-11-19 22:32] VITALS: BP 150/91
--- NOTE | 2023-11-19 22:39 | ED.GENMED ---
History of Present Illness
General
Chief Complaint: Chest Pain
Source: patient
Exam Limitations: none
Time Seen by Provider: 11/19/23 22:25
Nursing documentation reviewed up to this point in time: agreed with
Travel History
Have you had any contact with someone who has COVID-19?: No
Do you have any symptoms of coronavirus? Fever > 100 degrees, chills, cough, shortness of breath, sore throat, loss of taste or smell, muscle aches, or headache?: No
History of Present Illness
History of Present Illness:
73-year-old male with a past medical history of hypertension, hyperlipidemia, pacemaker, diabetes, A-fib on Eliquis who presents to the emergency room for evaluation of chest pain. Patient was recently admitted to this hospital last month on
10/03/2023 until 10/04/2023�presented with chest pain and was found to have pericardial effusion thought to be secondary to pericarditis. He has been following with cardiology (Dr. Jenkins) and is on colchicine. He says that he has not really had
much chest pain in the past few weeks. He says he was on vacation in [place] for the past 3 weeks. He says he was doing very well and last night they were driving home (about 7-hour drive). Apparently they stopped to sleep in a hotel last
night and when patient was unloading back from the car he says he started to get some pain across his upper chest radiating into his neck. He says that he thought it was muscular pain related to unloading the bags from the car. He says that the
next morning and felt a bit better but when he returned home and was turning his steering wheel to pull into the driveway he says that he noticed that the chest pain came back and all day today he reports he had some chest pain worse with certain
movements across the upper chest. He decided he should come to the emergency room to be assessed for this chest pain given his recent history. He denies any shortness of breath. He denies any recent coughing. Denies any fevers, chills, URI type
symptoms. Has not had any pain or swelling in the legs. He denies any nausea, vomiting, diaphoresis, abdominal pain. He denies any other complaints.
Past History
Past History
ED Past Medical History: HTN and Hypercholesterolemia
ED Past Surgical History: Other (left forearm degloving)
Social History
Tobacco: Non-smoker
Alcohol: None
Drug: None
Personal:
Living: with family
Employment: Employed
Family History
Family History: Other (Noncontributory)
Review of Systems
Review of Systems
All Other Systems: ROS reviewed and negative except as documented in HPI and ROS
Constitutional: Denies fever or chills
EENT: Denies sore throat or runny nose
Respiratory: Denies cough or trouble breathing
Cardiac: Reports chest pain; Denies diaphoresis, palpitations or syncope
ABD/GI: Denies abdominal pain, nausea or vomiting
: Denies flank pain
Musculoskeletal: Denies back pain
Neurological: Denies dizzy, headache, weakness or numbness
Phy Exam
Physical Exam
Physical Exam:
General: Awake, alert, oriented x3; no acute distress
Head: Normocephalic, atraumatic
Eyes: Conjunctiva normal, sclera anicteric
Throat: Airway intact, handling secretions
Neck: Trachea midline, supple without meningismus
Lungs: Clear to auscultation bilaterally, no wheezing, rales, rhonchi
Heart: Regular rate and rhythm, no murmurs, gallops, or rubs appreciated
Abd: Soft, non distended, nontender
Neuro: Cranial nerves grossly intact, speech fluid
Skin: no rash
Extremities: No edema in extremities, equal pulses in all extremities
Scores
Heart Failure Risk
Heart Failure Risk Score: Not Applicable
Heart Score for Chest Pain Patients
STEMI patient?: No
History: Slightly or Non-Suspicious
ECG: Nonspecific Repolarization
Age: >/= 65 years
Risk Factors: >/= 3 Risk Factors or History of CAD
Troponin: </= Normal Limit
Heart Score for Chest Pain Patients: 5
Heart Score Risk: 20.3% MACE over next 6 weeks
Withdrawal Assessment of Alcohol
Withdrawal Assessment Completed?: Not applicable
Course
Orders/Labs/Results
Orders:
Orders
11/19/23 20:15
EKG [Electrocardiogram (*1)] Urgent
Reason for Study: Chest Pain
EKG- Treatment ONCE
11/19/23 21:01
Complete Blood Count/With Diff Urgent
Comprehensive Metabolic Panel Urgent
NT-proBNP Urgent
Troponin I Urgent
11/19/23 22:26
CR Chest - 2 Views Urgent
Comment:
Reason For Exam: chest pain
11/19/23 22:35
Ketorolac [Toradol] 15 mg IV NOW STA
11/19/23 23:43
Troponin I Urgent
11/20/23 00:30
ECG [Electrocardiogram (*1)] Urgent
Reason for Study: Other
Other Reason for Exam: repeat Troponin
11/20/23 00:31
EKG- Treatment ONCE
Abnormal Lab Results
11/19/23
21:01
RBC 4.44 L 10^6/uL
(4.70-6.10)
MCHC 32.8 L g/dL
(33.0-37.0)
RDW 14.7 H %
(11.5-14.5)
MPV 11.5 H fL
(7.4-10.4)
Absolute Monos (auto) 0.9 H 10^3/uL
(0.1-0.6)
Monocytes % 11.1 H %
(1.7-9.3)
Carbon Dioxide 31 H mmol/L
(22-30)
BUN 22 H mg/dl
(9-20)
Glucose 127 H mg/dl
(70-99)
11/19/23 21:01
11/19/23 21:01
Vital Signs
Initial and Last Documented VS:
Initial Vital Signs
Pulse Resp Pulse Ox
60 18 99
11/19/23 20:14 11/19/23 20:14 11/19/23 20:14
Last Documented Vital Signs
Pulse Resp BP Pulse Ox
63 20 150/91 98
11/20/23 00:29 11/20/23 00:29 11/19/23 22:32 11/20/23 00:29
MDM/Problems Addressed
Differential Diagnosis Includes:
Pericarditis, acute SD/ACS, pneumonia, pneumothorax, pleurisy, PE much less likely as patient is on Eliquis and compliant
MDM/Problems Addressed:
73-year-old male presents for evaluation of atypical chest pain rating across the upper chest worse with certain movements. He does have a recent history of pericardial effusion and pericarditis which prompted him to come to the emergency to be
assessed. Hypertensive but otherwise normal vitals. Physical exam as above. EKG shows no STEMI. Plan to place an IV check labs including CBC and CMP, troponins. Check chest x-ray. Check [id number] ultrasound for signs of pericardial
effusion. Monitor on telemetry. Will trial some Toradol for pain control.
Initial labs reviewed: CBC unremarkable, CMP no clinically significant abnormalities. Troponin negative x 1. Awaiting rest of workup. Continue to monitor.
Repeat troponin negative. Chest x-ray reviewed by me shows no acute disease. Performed a [id number] ultrasound personally and patient has only trace pericardial effusion, grossly normal EF. Patient feeling much better after Toradol. Suspect
that this likely was musculoskeletal pain related to lifting heavy bags. No clear indication for admission at this point in time. Advised patient to follow-up with his PCP as an outpatient. He feels very comfortable with this plan. Spoke about
return precautions all questions answered.
Chronic conditions affecting care:
Hypertension, hyperlipidemia, diabetes�higher risk for CAD
Acute Exacerbation and/or Progression of Chronic Illness:
Acutely hypertensive
Acute Exacerbation and/or Progression of Chronic Illness: HTN
*Radiology
Radiology exam reviewed: preliminary read by ED provider
*Pulse Oximetry
Patient hypoxic: no
*EKG
Interpreted by ED Provider?: Yes
Heart Rate: 62
Rate: normal
Rhythm: sinus
Crand[place]: normal axis
Interval: first degree heart block
QRS Pattern: right bundle branch block
Ischemia: non-specific ST changes
*Critical Care Note
Total Time (30-74mins, 75-104mins- exclusive of procedures): Not Applicable
Data Reviewed
Review of Other/Old Records Reveals: Labs, Records, Progress Notes and Discharge Summary
Source: patient, records and spouse
ED Attending Note
-
Portions of this chart may have been created with voice recognition software.� Occasional wrong word or��sound alike� substitutions may have occurred due to the inherent limitations of voice recognition software.
Discharge Plan
Departure
Patient Disposition: Home (Routine Discharge)
Date of Disposition: 11/20/23
Time of Disposition: 01:06
Patient with high blood pressure during this ER visit?: Yes
Discharge Problem:
Chest pain, Hypertension
Instructions: Costochondritis (DC), Chest Pain PCP Follow Up, BLOOD PRESSURE
Prescriptions:
No Action
lisinopril 10 mg tablet
10 mg PO HS
Hold Instructions: Resume on 10/11/23. Resume only if you primary care provider and automobile seat cover installer say it is okay to resume this medication
finasteride 5 mg Tablet
5 mg PO HS
multivitamin Tablet
1 tab PO HS
atorvastatin 40 mg Tablet
40 mg PO QPM
colchicine 0.6 mg Tablet
0.6 mg PO BID Qty: 60 2RF
ibuprofen 600 mg Tablet
600 mg PO Q8H Qty: 39 0RF
metoprolol succinate 25 mg Tablet Extended Release 24 Hr
25 mg PO QPM Qty: 30 1RF
Referrals:
Adithya Ohara MD [Family Provider] - Follow up in 5-7 days
Activity Restrictions/Additional Instructions:
Thank you for visiting the Emergency Department at [facility].
1. Please schedule a follow up appointment as directed. Call first thing tomorrow morning to make an appointment.
2. If indicated, please take your medications as instructed and indicated on discharge paperwork.
3. If any of your symptoms do not improve, or persist, or become more severe within 6-12 hours, please return to the emergency department for further care.
4. Please return to the emergency department if you develop a headache, neck pain/stiffness, fever greater than 100.4F, chest pain, shortness of breath, persistent nausea, vomiting, slurred speech, difficulty walking, numbness/tingling, weakness,
signs of infection or any other symptoms that are worrisome to you.
Please call [phone] if you have any questions.
Interventions
Interventions:
*Risk Screen - Suicide Last Done: 11/19/23 22:32
*General Assessment Last Done: 11/19/23 22:32
*Neglect/Abuse Screening Last Done: 11/19/23 22:32
ED- Fall Risk Assessment Last Done: 11/19/23 22:32
*ED COVID-19 Vaccine History Last Done: 11/19/23 22:32
ED- Cardiac Assessment Last Done: 11/19/23 22:32
Discharge Date and Time
Print Language: MALAY
[2023-11-19] MEDS: TORADOL 15 MG IV (22:48)
[2023-11-20 01:01] LABS: Troponin I < 0.012 ng/ml
[2023-11-20 01:23] VITALS: BP 124/82
== END 2023-11-20 02:07 | disposition home or self-care (01) ==
LOC: EMR 20:12
PROVIDERS: Emergency Medicine; EMERGENCY PHYSICIAN Emergency Medicine; FAMILY PHYSICIAN Family Medicine
DX: R07.89 Other chest pain (principal); I10 Essential (primary) hypertension; E78.00 Pure hypercholesterolemia, unspecified; E11.9 Type 2 diabetes mellitus without complications; I48.91 Unspecified atrial fibrillation; I25.10 Atherosclerotic heart disease of native coronary artery without angina pectoris; Z79.01 Long term (current) use of anticoagulants; Z95.0 Presence of cardiac pacemaker
CPT/HCPCS: 99283; 96374; 71046; 80053; 83880; 84484; 85025; 93005

== ENCOUNTER 2023-12-27 16:39 | Inpatient (IN) | payer MEDICARE, OTHER, SELFPAY ==
[2023-12-27 15:49] VITALS: BP 121/79
--- NOTE | 2023-12-27 16:01 | HPS.HSE ---
Addendum entered and electronically signed by Ja Wiggins MD 12/27/23 16:32:
Patient seen and examined in collaboration with FRICTION PAINT MACHINE TENDER; agree with below.
-Patient with cardiac history as outlined below who underwent an outpatient stress echocardiogram today which was significantly abnormal (as outlined below).
-Patient being admitted to the Cardiology service to undergo cardiac catheterization tomorrow morning.
-Hold Eliquis; start heparin drip.
-Will obtain echocardiogram.
-lunchroom monitor.
Original Note:
Family Physician
-
Family Physician: Dr. Ohara
Primary wildlife biologist: Dr. Jenkins
Chief Complaint
-
Chest pain
History of Present Illness
Anand Hernandes is a 73-year-old male (known to Dr. Jenkins, his primary wildlife biologist), with paroxysmal atrial fibrillation (on apixaban), bradycardia s/p Medtronic dual-chamber pacemaker, hypertension, RBBB, pericardial effusion/pericarditis
(completing 3 months of colchicine) and dyslipidemia who presented today for stress echo which was prompted by chest pain. He was seen in the outpatient setting and endorsed midsternal anterior chest pain when lifting and carrying heavy luggage.
He also reported musculoskeletal pain that occurred with movement and had a recent diagnosis of costochondritis. Today, stress echocardiogram revealed [address] depression in inferior lateral leads and echocardiogram images with new septal and
apical hypokinesis. In addition to this, he had midsternal anterior chest pain while on the treadmill which resolved into recovery.
He is now chest pain-free.
Medical History
Past Medical History
Past Medical History: Reports None, Arrhythmia (Paroxysmal atrial fibrillation [on apixaban]), HTN, Hypercholesterolemia and Other (Pericarditis/pericardial effusion)
Past Surgical History: Reports Orthopedic
Social History
Tobacco: Non-smoker
Alcohol: Occasional
Drug: None
Family History
Family History: Other (Denies early CAD and SCD)
Allergies / Home Medications
Allergies reflects when Allergies were last updated in [employer].
Home Medications with original date entered in [employer]
Allergy/Medication List:
Allergies:
Denies food and drug allergies
Home medication list:
Apixaban 5 mg twice daily
Atorvastatin 40 mg daily
Colchicine 0.6 mg twice daily
Finasteride 5 mg p.o. at bedtime
Ibuprofen 600 mg p.o. every 8 as needed mild pain
Metoprolol succinate 25 mg every afternoon
Multivitamin 1 tablet p.o. daily
Review of Systems
-
History Source: Patient
A 12 point ROS was completed and negative except as noted: Yes
Constitutional: Reports No Symptoms
EENT: Reports No Symptoms
Respiratory: Reports No Symptoms
Cardiac: Reports See HPI
Abdomen/GI: Reports No Symptoms
: Reports No Symptoms
Musculoskeletal: Reports No Symptoms
Skin: Reports No Symptoms
Endocrine: Reports No Symptoms
Hematologic/Lymphatic: Reports No Symptoms
Psych: Reports No Symptoms
Physical Exam
Vital Signs
Vital Signs
Temp Pulse Resp BP Pulse Ox
97.6 F 76 20 121/79 99
12/27/23 15:49 12/27/23 15:49 12/27/23 15:49 12/27/23 15:49 12/27/23 15:49
Physical Exam
General: Well Developed, Well Nourished, No Apparent Distress and Comfortable
HEENT: NormoCephalic, Anicteric and Moist mucous membranes
Respiratory: Clear and Non Labored Respirations
Cardiac: S1/S2 and Regular Rhythm; No Peripheral Edema
GI: Soft, Non Tender, Non Distended and Normal Bowel Sounds
Rectal: Deferred by Provider
Genito-urinary: No costovertebral tender
Musculoskeletal: No Clubbing, No Cyanosis and No Edema
Skin: Warm and Dry
Neuro: AO x 3
Hematologic/Lymphatic: No Lymphadenopathy
Psych: Calm
Data Reviewed
-
Diagnostic Radiology: Report Reviewed by me (EKG: Sinus rhythm, RBBB, rate 67)
Medical Tests (Nuc Med, Echo, EKG etc): Report Reviewed by me (Stress echocardiogram as above)
Lab Data: Labs Reviewed by me
Old Records: Reviewed
Impression/Plan
-
IMPRESSION/PLAN: 73M
Supervisor Elementary Education: Dr. Jenkins
Chest pain
Abnormal stress echocardiogram
-Currently chest pain-free, sublingual nitroglycerin if needed
-ASA 324 mg x 1 now with 81 mg daily to follow
-Last dose of apixaban 5 mg this morning, transition to heparin drip in anticipation for cardiac catheterization in a.m.
-N.p.o. after midnight
-Fasting lipid panel in a.m.
-Update HgbA1c
Paroxysmal atrial fibrillation
-Seen on device 10/04/2023 after 15-hour episode
-Oral anticoagulation: Apixaban 5 mg twice daily, last dose this morning, transition to heparin as above
-[id number] score at least 2 (age 73, hypertension)
Medtronic PPM, last device check with 4 NSVT episodes
Pericarditis/pericardial effusion, completing 3 months of colchicine, this will end next week
Prediabetes, HgbA1c 6.4% in September
RBBB
SUBJECTIVE:
As above
--- NOTE | 2023-12-27 16:09 | ED.GENMED ---
History of Present Illness
<Kirti Rey PA-C - Last Filed: 12/27/23 18:54>
General
Chief Complaint: Chest Pain
Source: patient
Exam Limitations: none
Time Seen by Provider: 12/27/23 15:58
Nursing documentation reviewed up to this point in time: agreed with
Travel History
Have you had any contact with someone who has COVID-19?: No
Do you have any symptoms of coronavirus? Fever > 100 degrees, chills, cough, shortness of breath, sore throat, loss of taste or smell, muscle aches, or headache?: No
History of Present Illness
History of Present Illness:
Patient is a 73-year-old male with history hypertension, hyperlipidemia, diabetes presented to the emergency department for evaluation following abnormal stress test. Patient was seen by cardiology earlier today and was receiving a stress test when
he developed chest pain with significant abnormality seen on stress test. He was referred to the emergency department from cardiology office for admission to the hospital for catheterization tomorrow.
Patient denies any chest pain at this time. Patient denies any shortness of breath, dizziness, lightheadedness, sharp back pain.
Patient does state that he has been having worsening chest pain with exertion over the past few months which is why he was seeing cardiology for stress test.
Patient is on Eliquis for atrial fibrillation.
Past History
<Kirti Rey PA-C - Last Filed: 12/27/23 18:54>
Past History
ED Past Medical History: HTN and Hypercholesterolemia
ED Past Surgical History: Other (left forearm degloving)
Social History
Tobacco: Non-smoker
Alcohol: None
Drug: None
Personal:
Living: with family
Employment: Employed
Family History
Family History: Other (Noncontributory)
Review of Systems
<Kirti Rey PA-C - Last Filed: 12/27/23 18:54>
Review of Systems
Allergies reviewed?: Yes
All Other Systems: ROS reviewed and negative except as documented in HPI and ROS
Phy Exam
<Kirti Rey PA-C - Last Filed: 12/27/23 18:54>
Physical Exam
Physical Exam:
Vitals: Patient's vital signs are stable
General: Patient is very well appearing, no acute distress
Skin: Warm and dry, no rashes or lesions
Head: Normocephalic, atraumatic
Eyes: Sclera nonicteric. EOMs intact. No nystagmus.
Throat: Protecting airway
Neck: Normal ROM, no cervical spine tenderness, no meningismus
Cardiac: Regular rate and rhythm, no murmurs.
Pulm: Normal respiratory effort, no wheezes, rales, rhonchi heard on exam.
Abdomen: No abdominal tenderness.
Extremities: No evidence of cyanosis or edema
Neuro: AAOx3. CN II-XII intact. No focal neurologic deficits.
Psychiatric: Normal affect.
Scores
<Kirti Rey PA-C - Last Filed: 12/27/23 18:54>
Heart Score for Chest Pain Patients
STEMI patient?: No
History: Highly Suspicious
ECG: Normal
Age: >/= 65 years
Risk Factors: >/= 3 Risk Factors or History of CAD
Troponin: >1 - <3 x Normal Limit
Heart Score for Chest Pain Patients: 7
Heart Score Risk: 72.7 % MACE over next 6 weeks
Course
<Kirti Rey PA-C - Last Filed: 12/27/23 18:54>
Orders/Labs/Results
Orders:
Orders
12/27/23 Dinner
Cholesterol Lowering
At Your Request: Full Participation
Does patient need a safe tray?: No
12/27/23 15:52
Electrocardiogram (*1) Urgent
Reason for Study: Chest Pain
EKG- Treatment ONCE
12/27/23 15:57
Admit/Transfer Patient As Directed
Co-Sign Provider:
Level of Care: Inpatient admission
Assign to:: IVU
Physician / Group: CBC
Diagnosis: Chest pain
Reason for Hospitalization: Chest pain with abnormal stress echocardiogram
Expected length of stay greater than two midnights?: Yes
ELOS- Estimated Length of Stay in days: 3
I certify the patient meets the requirements for IP care: Yes
12/27/23 15:59
Aspirin Chewable [Low Strength Aspirin] 324 mg PO NOW STA
12/27/23 16:07
CBC/No Diff [Complete Blood Count/No Diff] Urgent
CMP [Comprehensive Metabolic Panel] Urgent
PTT Urgent
Troponin I Urgent
12/27/23 16:20
Heparin Protocol- PTT Orders As Directed
PTT per Heparin protocol: -Obtain CBC and baseline PTT - if not already collected.
-Obtain PTT 6 hours from start of infusion. Then, every 6 hours until 2 consecutive
PTT's are therapeutic. Then, PTT Daily.
-With each rate change, obtain PTT every 6 hours until 2 consecutive PTT's are
therapeutic. Then, PTT Daily.
Notify MD As Directed
Notify physician if: PTT is greater than or equal to 200.
12/27/23 16:30
Heparin 39251 Units/250 ml 25,000 units in 250 ml IV PER PROTOCOL
Weight to be used for heparin protocol in kilograms (kg):: 71.8
Protocol:: Cardiac Tx/Acute Coronary
PTT Goal Range to be used:: PTT 73 to 111 seconds
Order type:: Initial
INITIAL Infusion Dose (UNITS/KG/hr) & then follow protocol:: 12 units/kg/hr
Infusion Dose in UNITS/hr & then follow protocol (UNITS/hr):: 850
INFUSION RATE in mL/hr & then follow protocol (mL/hr):: 8.5
PTT less than or equal to 64 seconds:: Increase rate by 200 units/hr (+ 2 mL/hr)
PTT 64.1 to 72.9 seconds:: Increase rate by 100 units/hr (+ 1 mL/hr)
PTT 73 to 111 seconds:: Target Range. No change in rate.
PTT 111.1 to 130.9 seconds:: Decrease rate by 100 units/hr (- 1 mL/hr)
PTT 131 to 199.9 seconds:: HOLD for 1 hr. Then decrease rate by 200 units/hr (- 2 mL/hr)
PTT greater than or equal to 200 seconds:: HOLD for 2 hrs & Notify Provider. Then decrease by 200 units/hr (-
2 mL/hr)
Lab follow-up:: Each change, PTT q6h until 2 consecutive are therapeutic. Then PTT
daily.
12/29/23 06:00
Complete Blood Count/No Diff Q2D
Comment: Notify MD if platelet count is <130,000 or decreases by 50% from baseline
12/31/23 06:00
Complete Blood Count/No Diff Q2D
Comment: Notify MD if platelet count is <130,000 or decreases by 50% from baseline
01/02/24 06:00
Complete Blood Count/No Diff Q2D
Comment: Notify MD if platelet count is <130,000 or decreases by 50% from baseline
01/04/24 06:00
Complete Blood Count/No Diff Q2D
Comment: Notify MD if platelet count is <130,000 or decreases by 50% from baseline
01/06/24 06:00
Complete Blood Count/No Diff Q2D
Comment: Notify MD if platelet count is <130,000 or decreases by 50% from baseline
01/08/24 06:00
Complete Blood Count/No Diff Q2D
Comment: Notify MD if platelet count is <130,000 or decreases by 50% from baseline
01/10/24 06:00
Complete Blood Count/No Diff Q2D
Comment: Notify if platelet count is <130,000 or decreases by 50% from baseline
01/12/24 06:00
Complete Blood Count/No Diff Q2D
Comment: Notify MD if platelet count is <130,000 or decreases by 50% from baseline
Abnormal Lab Results
12/27/23
16:07
RBC 4.66 L 10^6/uL
(4.70-6.10)
RDW 14.8 H %
(11.5-14.5)
MPV 11.3 H fL
(7.4-10.4)
ALT 51 H U/L
(0-50)
Troponin I 0.040 H* ng/ml
12/27/23 16:07
12/27/23 16:07
Vital Signs
Initial and Last Documented VS:
Initial Vital Signs
Temp Pulse Resp BP Pulse Ox
97.6 F 76 20 121/79 99
12/27/23 15:49 12/27/23 15:49 12/27/23 15:49 12/27/23 15:49 12/27/23 15:49
Last Documented Vital Signs
Temp Pulse Resp BP Pulse Ox
97.6 F 76 20 121/79 99
12/27/23 15:49 12/27/23 15:49 12/27/23 15:49 12/27/23 15:49 12/27/23 15:49
<Viki Elmore MD - Last Filed: 12/27/23 16:19>
Orders/Labs/Results
Orders:
Orders
12/27/23 Dinner
Cholesterol Lowering
At Your Request: Full Participation
Does patient need a safe tray?: No
12/27/23 15:52
Electrocardiogram (*1) Urgent
Reason for Study: Chest Pain
EKG- Treatment ONCE
12/27/23 15:57
Admit/Transfer Patient As Directed
Co-Sign Provider:
Level of Care: Inpatient admission
Assign to:: IVU
Physician / Group: CBC
Diagnosis: Chest pain
Reason for Hospitalization: Chest pain with abnormal stress echocardiogram
Expected length of stay greater than two midnights?: Yes
ELOS- Estimated Length of Stay in days: 3
I certify the patient meets the requirements for IP care: Yes
12/27/23 15:59
Aspirin Chewable [Low Strength Aspirin] 324 mg PO NOW STA
12/27/23 16:07
CBC/No Diff [Complete Blood Count/No Diff] Urgent
CMP [Comprehensive Metabolic Panel] Urgent
PTT Urgent
Troponin I Urgent
12/27/23 16:20
Heparin Protocol- PTT Orders As Directed
PTT per Heparin protocol: -Obtain CBC and baseline PTT - if not already collected.
-Obtain PTT 6 hours from start of infusion. Then, every 6 hours until 2 consecutive
PTT's are therapeutic. Then, PTT Daily.
-With each rate change, obtain PTT every 6 hours until 2 consecutive PTT's are
therapeutic. Then, PTT Daily.
Notify MD As Directed
Notify physician if: PTT is greater than or equal to 200.
12/27/23 16:30
Heparin 38103 Units/250 ml 25,000 units in 250 ml IV PER PROTOCOL
Weight to be used for heparin protocol in kilograms (kg):: 71.8
Protocol:: Cardiac Tx/Acute Coronary
PTT Goal Range to be used:: PTT 73 to 111 seconds
Order type:: Initial
INITIAL Infusion Dose (UNITS/KG/hr) & then follow protocol:: 12 units/kg/hr
Infusion Dose in UNITS/hr & then follow protocol (UNITS/hr):: 850
INFUSION RATE in mL/hr & then follow protocol (mL/hr):: 8.5
PTT less than or equal to 64 seconds:: Increase rate by 200 units/hr (+ 2 mL/hr)
PTT 64.1 to 72.9 seconds:: Increase rate by 100 units/hr (+ 1 mL/hr)
PTT 73 to 111 seconds:: Target Range. No change in rate.
PTT 111.1 to 130.9 seconds:: Decrease rate by 100 units/hr (- 1 mL/hr)
PTT 131 to 199.9 seconds:: HOLD for 1 hr. Then decrease rate by 200 units/hr (- 2 mL/hr)
PTT greater than or equal to 200 seconds:: HOLD for 2 hrs & Notify Provider. Then decrease by 200 units/hr (-
2 mL/hr)
Lab follow-up:: Each change, PTT q6h until 2 consecutive are therapeutic. Then PTT
daily.
12/29/23 06:00
Complete Blood Count/No Diff Q2D
Comment: Notify MD if platelet count is <130,000 or decreases by 50% from baseline
12/31/23 06:00
Complete Blood Count/No Diff Q2D
Comment: Notify MD if platelet count is <130,000 or decreases by 50% from baseline
01/02/24 06:00
Complete Blood Count/No Diff Q2D
Comment: Notify MD if platelet count is <130,000 or decreases by 50% from baseline
01/04/24 06:00
Complete Blood Count/No Diff Q2D
Comment: Notify MD if platelet count is <130,000 or decreases by 50% from baseline
01/06/24 06:00
Complete Blood Count/No Diff Q2D
Comment: Notify MD if platelet count is <130,000 or decreases by 50% from baseline
01/08/24 06:00
Complete Blood Count/No Diff Q2D
Comment: Notify MD if platelet count is <130,000 or decreases by 50% from baseline
01/10/24 06:00
Complete Blood Count/No Diff Q2D
Comment: Notify MD if platelet count is <130,000 or decreases by 50% from baseline
01/12/24 06:00
Complete Blood Count/No Diff Q2D
Comment: Notify MD if platelet count is <130,000 or decreases by 50% from baseline
Abnormal Lab Results
12/27/23
16:07
RBC 4.66 L 10^6/uL
(4.70-6.10)
RDW 14.8 H %
(11.5-14.5)
MPV 11.3 H fL
(7.4-10.4)
ALT 51 H U/L
(0-50)
Troponin I 0.040 H* ng/ml
12/27/23 16:07
12/27/23 16:07
Vital Signs
Initial and Last Documented VS:
Initial Vital Signs
Temp Pulse Resp BP Pulse Ox
97.6 F 76 20 121/79 99
12/27/23 15:49 12/27/23 15:49 12/27/23 15:49 12/27/23 15:49 12/27/23 15:49
Last Documented Vital Signs
Temp Pulse Resp BP Pulse Ox
97.6 F 76 20 121/79 99
12/27/23 15:49 12/27/23 15:49 12/27/23 15:49 12/27/23 15:49 12/27/23 15:49
<Kirti Rey PA-C - Last Filed: 12/27/23 18:54>
MDM/Problems Addressed
Differential Diagnosis Includes:
Not limited to: CAD, unstable angina, pericarditis, myocarditis, ACS
MDM/Problems Addressed:
Patient is a 73-year-old male with history as documented presenting from cardiology office following abnormal stress test. Patient sent for admission to cardiology service for likely heart cath patient tomorrow. Patient asymptomatic at this
time�specifically denies any chest pain, shortness of breath, lightheadedness/dizziness. Vitals are stable. Exam as above. He is extremely well-appearing, in no apparent respiratory distress. No signs of acute ischemia noted on EKG obtained in
triage. Will check basic labs, troponin. Spoke to cardiology [employer] ATT[employer]ER ZIGZAG who has already input admission orders. Patient will be admitted to cardiology service, Dr. Wiggins for heart catheterization tomorrow.
Chronic conditions affecting care:
Hypertension, hyperlipidemia, diabetes
Acute Exacerbation and/or Progression of Chronic Illness:
CAD
<Kirti Rey PA-C - Last Filed: 12/27/23 18:54>
*Pulse Oximetry
Patient hypoxic: no
*EKG
Interpreted by ED Provider?: Yes
EKG Intrepretation Date: 12/27/23
Interpretation: normal
Heart Rate: 67
Rate: normal
Rhythm: sinus
QRS Pattern: right bundle branch block
*Post Splitter Interpretation
Rate: normal
Interpretation: normal
Heart Rate: 74
Rhythm: sinus
*Critical Care Note
Total Time (30-74mins, 75-104mins- exclusive of procedures): Not Applicable
Data Reviewed
Review of Other/Old Records Reveals: Labs and Records
Source: previous hospital records
ED Attending Note
<Kirti Rey PA-C - Last Filed: 12/27/23 18:54>
-
Portions of this chart may have been created with voice recognition software.� Occasional wrong word or��sound alike� substitutions may have occurred due to the inherent limitations of voice recognition software.
<Viki Elmore MD - Last Filed: 12/27/23 16:19>
ED Attending Note
Patient seen and examined by attending physician: Yes
I performed the substantive portion of visit, reviewed & personally made and approve the management plan that is documented in note by myself or MARGARITA.: Yes
ED Attending Note:
Patient appears comfortable and well. He is he is breathing comfortably. He is chest pain-free at this time without signs of edema.
Discharge Plan
Departure
Patient Disposition: Admit
Date of Disposition: 12/27/23
Time of Disposition: 16:32
Presentation/result/management discussed w/ accepting MD/DO: Dr. Wiggins
Covid-19: Not Applicable
Discharge Problem:
Chest pain, Abnormal stress test
Interventions
Interventions:
*Risk Screen - Suicide Last Done: 12/27/23 15:49
*General Assessment Last Done: 12/27/23 15:49
*Neglect/Abuse Screening Last Done: 12/27/23 15:49
ED- Cardiac Assessment Last Done: 12/27/23 17:50
[2023-12-27 16:22] LABS: Hematocrit 40.8 % (39.0-52.0); Hemoglobin 14.2 g/dL (13.0-18.0); Mean Corp Hgb Conc. 34.8 g/dL (33.0-37.0); Mean Corpuscular Hgb 30.5 pg (27.0-31.0); Mean Corpuscular Volume 87.6 fL (80.0-94.0); Mean Platelet Volume 11.3 fL (7.4-10.4); Platelet Count 149 10^3/uL (130-400); Red Blood Cell Count 4.66 10^6/uL (4.70-6.10); Red Cell Dist. Width 14.8 % (11.5-14.5); White Blood Cell Count 7.4 10^3/uL (4.8-10.8)
[2023-12-27] MEDS: LOW STRENGTH ASPIRIN 324 MG PO (16:23)
[2023-12-27 16:33] LABS: APTT 33.1 Sec (23.4-35.0)
[2023-12-27 16:50] LABS: ALT (SGPT) 51 U/L (0-50); AST (SGOT) 38 U/L (17-59); Albumin 4.5 g/dl (3.5-5.0); Alkaline Phosphatase 75 U/L (38-126); Blood Urea Nitrogen 18 mg/dl (9-20); Calcium 9.8 mg/dl (8.4-10.2); Carbon Dioxide 23 mmol/L (22-30); Estimated Creatinine Clearance 78 ml/min; Glucose 99 mg/dl (70-99); Total Bilirubin 0.5 mg/dl (0.2-1.3); Total Protein 7.1 g/dl (6.3-8.2); eGFR > 60.00
[2023-12-27] MEDS: HEPARIN 25000 UNITS/250 ML IV (16:59)
[2023-12-27 17:16] LABS: Chloride 105 mmol/L (98-107); Potassium 4.4 mmol/L (3.5-5.1); Sodium 138 mmol/L (135-145)
[2023-12-27 18:18] VITALS: BP 130/81
[2023-12-27 19:00] VITALS: BP 118/77
[2023-12-27] MEDS: COLCHICINE 0.599999999999999978 MG PO (19:20)
[2023-12-27] MEDS: TOPROL XL 25 MG PO (19:20)
[2023-12-27] MEDS: LIPITOR 40 MG PO (19:20)
[2023-12-27] MEDS: PROSCAR 5 MG PO (22:01)
[2023-12-27 22:02] VITALS: BP 123/81
[2023-12-27 23:27] LABS: APTT 50.5 Sec (23.4-35.0)
[2023-12-28] VITALS (9 sets, daily range): BP systolic 109–148; BP diastolic 70–89; BMI 24.9
[2023-12-28 06:10] LABS: APTT 77.4 Sec (23.4-35.0)
[2023-12-28 06:41] LABS: HDL Cholesterol 48 mg/dl; LDL Cholesterol, Calculated 42 mg/dl; Total Cholesterol 102 mg/dl (50-199); Triglyceride 63 mg/dl (10-149); Very Low Density Lipoprotein 12 mg/dl (0-30)
--- NOTE | 2023-12-28 09:07 | W.PN.CD ---
Today's Communication / Plan
-
Cardiac catheterization to clarify coronary anatomy.
Impression / Plan
-
Impression/Plan: 73 y/o male with RBBB/SSS s/p PPM, HLD and pericarditis admitted with high risk stress test including chest pain.
#Chest pain/abnormal stress test
-Chest pain resolved.
-Troponin 0.040.
-Stress test shows [address] depressions, septal/apical hypokinesis and central chest pressure.
-Continue metoprolol, atorvastatin.
-Cardiac catheterization today to clarify coronary anatomy.
#HLD
-Chronic, stable.
-Total cholesterol = 102, LDL = 42, HDL = 48, Triglycerides = 63.
-Continue atorvastatin 40 mg daily.
#Hx of Pericarditis
#SSS s/p PPM.
Subjective/Interval History:
Mildly hypertensive this AM (148/83).
No further chest pain.
DATA:
Stress Echocardiogram, 12/27/2023:
CONCLUSIONS
-Abnormal stress echocardiogram.
-The stress EKG was positive for ischemia with [address] depression in the
inferolateral leads; there was some difficulty in EKG interpretation due to
underlying right bundle branch block with repolarization abnormality.
-The patient experienced chest pain with exercise.
-DTS = -3.
-At peak exercise, the left ventricle augmented appropriately, but there was
new, severe mid anteroseptal, mid inferoseptal, apical septal, distal anterior,
and apical hypokinesis suggestive of stress-induced ischemia.
-Overall, moderate to high risk study.
TTE, 10/10/2023:
CONCLUSIONS
Normal left ventricular size, wall thickness and systolic function.
LV ejection fraction is 50-55 % .
No significant valvular disease.
very small pericardial effusion .
Compared to the previous echo images from 10/03/2023 this been a significant
reduction in the size of the pericardial effusion.
Physical Exam
Vital Signs/Labs
Vital Signs
Temp Pulse Resp BP Pulse Ox
36.6 C 63 16 148/83 98
12/28/23 06:51 12/28/23 06:51 12/28/23 06:51 12/28/23 06:51 12/28/23 06:51
12/26/23 12/27/23 12/28/23
11:59 11:59 11:59
Actual Weight 74.3 kg
12/27/23 16:07
12/27/23 16:07
APTT 77.4 Sec (23.4-35.0) H 12/28/23 05:49
Triglycerides 63 mg/dl (10-149) 12/28/23 05:49
LDL Cholesterol, Calc 42 mg/dl 12/28/23 05:49
VLDL Cholesterol, Calc 12 mg/dl (0-30) 12/28/23 05:49
HDL Cholesterol 48 mg/dl 12/28/23 05:49
LAB Results
12/27/23
16:07
Troponin I 0.040 H*
Physical Exam
Constitutional: No acute distress and Comfortable
EENT: Anicteric and Moist mucous membranes
Cardiovascular: Rhythm & rate is regular, Pedal edema is absent, JVD pressure is normal, S1S2 is normal and Murmur/rub/gallop absent
Respiratory: Respiratory effort normal, Lungs clear to auscul., Wheeze Absent, Crackles Absent and Rhonchi Absent
GI: Soft, Distention absent, Flat, Non tender and Normal bowel sounds
Neuro/Psych: AO x 3
Data Reviewed
-
Date of Service: December 28, 2023
Medical Decision Making: Reviewed Test Results, Independent Historian Assessment and Test Interpretation
EKG: Tracing Personally Visualized and interpreted and Report Reviewed by me
Echo: Tracing Personally Visualized and interpreted and Report Reviewed by me
X-Ray/CT/US/MRI/NUC/PET: Image Personally Visualized and interpreted and Report Reviewed by me
Medical Tests (PFT, Pathology etc): Image Personally Visualized and interpreted and Report Reviewed by me
Labs: Labs Reviewed by me
[2023-12-28] MEDS: COLCHICINE 0.599999999999999978 MG PO ×2 (09:17→20:26)
[2023-12-28] MEDS: THERAGRAN 1 TABLET PO (09:17)
[2023-12-28] MEDS: ASPIR LOW (ENTERIC COATED) 81 MG PO (09:17)
[2023-12-28 09:24] LABS: Glycohemoglobin (HgbA1c) 6.1 % (4.0-5.6)
--- NOTE | 2023-12-28 10:30 | PTCARENOTE ---
received from earth science laboratory technician post cath and stent placement. AAOx3. VSS. pulse ox 100% distal to TR band. 8 cc air in band at this time. will continue to monitor.
--- NOTE | 2023-12-28 10:43 | ITS.CL.ANGIO ---
Cash Register Operator - Angioplasty
Angioplasty
Procedure Report:
CARDIAC CATHETERIZATION REPORT
Date of Procedure: 12/28/2023
Referring: Ja Wiggins M.D.
INDICATION: Chest pain, high risk stress test.
PROCEDURE:
1. Left heart catheterization
2. Coronary angiography.
3. Successful IVUS guided PCI of the ostial/proximal LAD.
ACCESS:
[6] [place] right radial artery.
CATHETERS:
1. 5 [place] JR4.
2. 5 Tongan JL 3.5.
3. 6 [place] EBU 3.5 guiding catheter.
HEMODYNAMIC DATA
Weight (kg): 74.3
AO (s/d/x, mmHg): 118/71/89
LV (s/x mmHg): 122/5
LEFT VENTRICULOGRAPHY: Not performed.
CORONARY ANGIOGRAPHY
Dominance: Right.
Left Main: Normal size, bifurcating vessel. There is no coronary artery disease.
LAD: Normal size vessel giving rise to 1 significant diagonal. There is ostial/proximal LAD atherosclerosis extending from the origin of the LAD into the proximal vessel, culminating in a 90% proximal LAD lesion. There are luminal
irregularities throughout. Some wire spasm is noted.
Ramus: Congenitally absent.
Circumflex: Normal size, nondominant vessel giving rise to a single obtuse marginal that arises very high on the vessel. This obtuse marginal subsequently bifurcates into 3 daughter vessel supplying the majority of the lateral wall. There are
minor luminal irregularities.
RCA: Large size, dominant vessel with a significant posterolateral arcade. There are minor luminal irregularities throughout the vessel including a 50% lesion in the ostium of the RPDA.
INTERVENTION(S)
1. Successful IVUS guided PCI of the 90% ostial/proximal lesion (Xience Skypoint 3.0 x 23 TIERA, postdilated with a 3.0 NC balloon throughout and a 3.25 NC balloon in the proximal margin) with reduction in stenosis to 0%, maintaining FREEDOM-3 flow.
Narrative:
The decision was made to proceed with percutaneous coronary intervention. The diagnostic catheter was removed over a wire and a 6Fr EBU 3.5 guiding catheter was advanced to the aortic root and seated in the left main coronary artery. Additional
heparin was given and a Power Turn Flex wire was advanced into the distal LAD. The 90% ostial/proximal LAD lesion was predilated with a 2.0 x 12 semi-compliant balloon to 12 hu. Some distal stenosis was noted on post inflation angiography,
consistent with wire spasm. Nitroglycerin 200 mcg was given intracoronary with good effect.
The decision was made to perform intracoronary imaging. An IVUS catheter was advanced through the guiding catheter and into the ostium of the artery. Ring down was performed once the imaging crystal was no longer inside of the guiding catheter. The
IVUS catheter was advanced into the mid LAD. Intravascular ultrasound was performed in a retrograde fashion using a slow pullback. Intracoronary imaging demonstrated severe atherosclerotic disease of the proximal vessel extending all the way back to
the origin of the LAD with nonocclusive atherosclerosis in the left main coronary artery. Vessel sizing was performed.
The IVUS catheter was removed and a 3.0 x 15 noncompliant balloon was advanced. The ostial/proximal LAD lesion was predilated to 12 hu with good balloon expansion. The noncompliant balloon catheter was removed and a Xience Skypoint 3.0 x 18
drug-eluting stent was advanced. Unfortunately, this stent appeared to be too short for the selected lesion as it would not entirely cover the zenith of the lesion or extend back into the ostium of the LAD. The decision was made to exchange the
stent for a 3.0 x 23 drug-eluting stent. Meticulous care was taken while positioning the stent, ensuring that the distal margin cover the entire lesion, including a local microdissection, and the proximal and extended into the ostium of the LAD,
perhaps with 1 stent cell in the left main but clearly not occlusive of the circumflex. The stent was deployed at 12 atmospheres. The stent balloon was removed. The 3.0 x 15 noncompliant balloon was readvanced into the stent and the entire stent
was postdilated to 16 atmospheres.
IVUS was repeated showing excellent stent apposition throughout the entire stented segment. There was good stent expansion in the mid and distal segments. There was some mild underexpansion in the ostial/proximal stent margin. The IVUS catheter
was withdrawn and a 3.25 x 12 noncompliant balloon was advanced. The proximal margin of the stent was postdilated to 16 hu. The noncompliant balloon was removed.
Angiography was performed in orthogonal views, confirming good stent expansion and an excellent angiographic result in the stented segment. Some wire spasm was again noted in the more distal vessel. The coronary wire was pulled back from the
distal segment and a second dose of intracoronary nitroglycerin was given with resolution of the spasm. The coronary wire was withdrawn and the guide was disengaged from the artery. The catheter was removed over a standard J-wire.
Closure Device: Vascular band.
Radiation (mGy): 623.30
DAP (cm2.Gy): 36.0867
Fluoroscopy time (minutes): 13.4
Sedation time (minutes): 50
CONCLUSIONS
1. Right dominant circulation with a 50% lesion in the ostium of the RPDA, luminal irregularities in the remainder of the RCA as well as in the circumflex and a 90% lesion in the proximal LAD extending back to the ostium of the vessel, status post
successful IVUS guided PCI (Xience Skypoint 3.0 x 23 TIERA, postdilated with a 3.0 NC balloon throughout and a 3.25 NC balloon in the proximal margin) with reduction in stenosis to 0%, maintaining FREEDOM-3 flow.
2. Normal filling pressures (LVEDP = 5 mmHg at 74.3 kg).
3. Wire induced coronary artery spasm, resolved with intracoronary nitroglycerin.
RECOMMENDATIONS:
1. Expectant management after cardiac catheterization via right radial approach.
2. Limited weight bearing on the right wrist for one week.
3. Antiplatelet/antithrombotic therapy with clopidogrel and apixaban for at least 12 months, followed by apixaban monotherapy thereafter.
4. Trend troponin to peak is only a single troponin was drawn. Troponin elevation at this time would not be consistent with periprocedural myocardial infarction as no peak had been established.
5. Aggressive secondary prevention. Cholesterol profile currently at goal.
6. Referral to cardiac rehab.
Copy to: Jay Jenkins M.D., Adithya Ohara M.D., Ja Wiggins M.D.
Drew Epps DO, FACC, FACP
[2023-12-28 11:21] LABS: Troponin I 0.044 ng/ml
[2023-12-28 12:14] LABS: ACT-LR - POC > 397 Seconds (116-155)
--- NOTE | 2023-12-28 13:08 | CM ---
Chart reviewed. Patient is independent of ADLS, lives with his in a [address], 0 RACHAEL, 0 DME. Plan is for the patient to return home. CM to follow
--- NOTE | 2023-12-28 16:03 | PTCARENOTE ---
Patient resting comfortably, c/o mild tenderness in right hand. Right wrist dressing CDI with ecchymosis of surrounding area, +radial pulse. Spouse at bedside.
[2023-12-28] MEDS: LIPITOR 40 MG PO (17:20)
[2023-12-28] MEDS: TOPROL XL 25 MG PO (17:20)
[2023-12-28] MEDS: TYLENOL 650 MG PO (18:37)
[2023-12-28] MEDS: PROSCAR 5 MG PO (20:26)
[2023-12-28] MEDS: ELIQUIS 5 MG PO (20:26)
--- NOTE | 2023-12-28 21:31 | PTCARENOTE ---
received at change of shift- R radial site CDI- small quarter sized hematoma above the dressing held pressure for 5 mins and it softened. + radial pulse. POC discussed. A-paced on the monitor. No complaints at this time. call olmos within reach.
[2023-12-28 21:53] LABS: Troponin I 0.145 ng/ml
[2023-12-29 04:03] VITALS: BP 124/79
[2023-12-29 04:12] LABS: Hematocrit 40.6 % (39.0-52.0); Hemoglobin 14.1 g/dL (13.0-18.0); Mean Corp Hgb Conc. 34.7 g/dL (33.0-37.0); Mean Corpuscular Hgb 30.8 pg (27.0-31.0); Mean Corpuscular Volume 88.6 fL (80.0-94.0); Mean Platelet Volume 11.4 fL (7.4-10.4); Platelet Count 147 10^3/uL (130-400); Red Blood Cell Count 4.58 10^6/uL (4.70-6.10); Red Cell Dist. Width 14.8 % (11.5-14.5); White Blood Cell Count 9.1 10^3/uL (4.8-10.8)
[2023-12-29 04:40] LABS: Blood Urea Nitrogen 19 mg/dl (9-20); Carbon Dioxide 23 mmol/L (22-30); Chloride 105 mmol/L (98-107); Estimated Creatinine Clearance 80 ml/min; Glucose 104 mg/dl (70-99); Potassium 4.7 mmol/L (3.5-5.1); Sodium 139 mmol/L (135-145); eGFR > 60.00
[2023-12-29 04:42] LABS: Troponin I 0.203 ng/ml
[2023-12-29 06:43] VITALS: BP 142/87
--- NOTE | 2023-12-29 07:00 | W.PN.CD ---
Today's Communication / Plan
-
Load with clopidogrel.
Trend troponin to peak.
Discharge planning.
Impression / Plan
-
Impression/Plan: 73 y/o male with RBBB/SSS s/p PPM, HLD and pericarditis admitted with high risk stress test including chest pain.
#Chest pain/abnormal stress test/NSTEMI
-Chest pain resolved.
-Stress test shows [address] depressions, septal/apical hypokinesis and central chest pressure.
-Troponin 0.040 --> 0.044 --> 0.145 --> 0.203.
-Cardiac catheterization showed a 90% proximal LAD lesion extending to the ostium, now s/p IVUS guided PCI (Xience Skypoint 3.0 x 23 TIERA, post dilated with a 3.25 NC balloon).
-Continue metoprolol, atorvastatin.
-Loaded with ticagrelor in the lab. Further ticagrelor held. Load with clopidogrel 600 mg this morning (since he will need therapeutic anticoagulation), then 75 mg daily.
-Trend troponin to peak.
-Discharge planning (likely today).
#HLD
-Chronic, stable.
-Total cholesterol = 102, LDL = 42, HDL = 48, Triglycerides = 63.
-Continue atorvastatin 40 mg daily.
#Paroxysmal atrial fibrillation
-Currently in NSR.
-Rate control with metoprolol.
-CHADS2-Vasc = 2 (Age x1, vascular disease).
-Therapeutic anticoagulation with apixaban 5 mg BID.
#Hx of Pericarditis
#SSS s/p PPM.
Subjective/Interval History:
PCI of the ostial/proximal LAD yesterday.
Troponins never peaked after presentation, so we are currently trending them.
DATA:
Cardiac Catheterization/PCI, 12/28/2023:
CONCLUSIONS
1. Right dominant circulation with a 50% lesion in the ostium of the RPDA, luminal irregularities in the remainder of the RCA as well as in the circumflex and a 90% lesion in the proximal LAD extending back to the ostium of the vessel, status post
successful IVUS guided PCI (Xience Skypoint 3.0 x 23 TIERA, postdilated with a 3.0 NC balloon throughout and a 3.25 NC balloon in the proximal margin) with reduction in stenosis to 0%, maintaining FREEDOM-3 flow.
2. Normal filling pressures (LVEDP = 5 mmHg at 74.3 kg).
3. Wire induced coronary artery spasm, resolved with intracoronary nitroglycerin.
Stress Echocardiogram, 12/27/2023:
CONCLUSIONS
-Abnormal stress echocardiogram.
-The stress EKG was positive for ischemia with [address] depression in the
inferolateral leads; there was some difficulty in EKG interpretation due to
underlying right bundle branch block with repolarization abnormality.
-The patient experienced chest pain with exercise.
-DTS = -3.
-At peak exercise, the left ventricle augmented appropriately, but there was
new, severe mid anteroseptal, mid inferoseptal, apical septal, distal anterior,
and apical hypokinesis suggestive of stress-induced ischemia.
-Overall, moderate to high risk study.
TTE, 10/10/2023:
CONCLUSIONS
Normal left ventricular size, wall thickness and systolic function.
LV ejection fraction is 50-55 % .
No significant valvular disease.
very small pericardial effusion .
Compared to the previous echo images from 10/03/2023 this been a significant
reduction in the size of the pericardial effusion.
Physical Exam
Vital Signs/Labs
Vital Signs
Temp Pulse Resp BP Pulse Ox
36.6 C 60 18 124/79 95
12/29/23 04:10 12/29/23 06:00 12/29/23 04:10 12/29/23 04:03 12/29/23 04:10
12/27/23 12/28/23 12/29/23
11:59 11:59 11:59
Actual Weight 74.3 kg
12/29/23 04:01
12/29/23 04:01
APTT Cancelled 12/28/23 11:49
Triglycerides 63 mg/dl (10-149) 12/28/23 05:49
LDL Cholesterol, Calc 42 mg/dl 12/28/23 05:49
VLDL Cholesterol, Calc 12 mg/dl (0-30) 12/28/23 05:49
HDL Cholesterol 48 mg/dl 12/28/23 05:49
LAB Results
12/27/23 12/28/23 12/28/23
16:07 10:35 21:21
Troponin I 0.040 H* 0.044 H* 0.145 H*
12/29/23
04:01
Troponin I 0.203 H* D
Physical Exam
Constitutional: No acute distress and Comfortable
EENT: Anicteric and Moist mucous membranes
Cardiovascular: Rhythm & rate is regular, Pedal edema is absent, JVD pressure is normal, S1S2 is normal and Murmur/rub/gallop absent
Respiratory: Respiratory effort normal, Lungs clear to auscul., Wheeze Absent, Crackles Absent and Rhonchi Absent
GI: Soft, Distention absent, Flat, Non tender and Normal bowel sounds
Neuro/Psych: AO x 3
Other: Cath Site (Right radial access site is C/D/I.)
Data Reviewed
-
Date of Service: December 29, 2023
Medical Decision Making: Reviewed Test Results, Independent Historian Assessment, Test Interpretation and Review of Case with other Provider
EKG: Tracing Personally Visualized and interpreted and Report Reviewed by me
Echo: Report Reviewed by me
X-Ray/CT/US/MRI/NUC/PET: Image Personally Visualized and interpreted and Report Reviewed by me
Medical Tests (PFT, Pathology etc): Image Personally Visualized and interpreted and Report Reviewed by me
Labs: Labs Reviewed by me
[2023-12-29] MEDS: ELIQUIS 5 MG PO (08:17)
[2023-12-29] MEDS: THERAGRAN 1 TABLET PO (08:17)
[2023-12-29] MEDS: PLAVIX 600 MG PO (08:17)
[2023-12-29] MEDS: COLCHICINE 0.599999999999999978 MG PO (08:17)
[2023-12-29 11:17] VITALS: BP 129/85
--- NOTE | 2023-12-29 12:36 | W.DS.TRANS ---
DC Summary - [facility]
-
Discharge Instructions:
Discharge Diagnosis/Procedures Angioplasty with stent to LAD
Diet Low Cholesterol
Driving Restrictions No driving for 24 hours
Other Services Cardiac Rehab
Instructions: Heart attack recovery
Clopidogrel
Nitroglycerin
Stand-Alone Forms: DC Instructions- Cath/EP Lab
Changes to Home Medications: Yes
Discharge Medications:
DC Medications w/original date entered in [facility]
finasteride 5 mg tablet 5 mg PO HS Urinary issue 08/09/22
multivitamin 1 tab PO DAILY Supplement 12/21/22
atorvastatin 40 mg tablet 40 mg PO QPM High Cholesterol 10/03/23
colchicine 0.6 mg tablet 0.6 mg PO BID #60 tabs 10/04/23
metoprolol succinate 25 mg tablet,extended release 24 hr 25 mg PO QPM #30 tabs 10/04/23
apixaban 5 mg tablet (Eliquis) 5 mg PO BID Blood Clot Prevention/Tx 12/27/23
ibuprofen 600 mg tablet 600 mg PO Q8H PRN mild pain 12/27/23
clopidogrel 75 mg tablet 75 mg PO DAILY #90 tabs 12/29/23
nitroglycerin 0.4 mg sublingual tablet 0.4 mg sublingual [id number] PRN chest pain #25 tabs 12/29/23
Home Medication Changes
new plavix, nitro
Pending Results: No
== END 2023-12-29 13:22 | disposition home or self-care (01) | DRG 322 ==
LOC: IVU 16:39
PROVIDERS: Internal Medicine Cardiovascular Disease; Nurse Practitioner Adult Health; Nurse Practitioner Gerontology; ADMITTING PHYSICIAN Internal Medicine; EMERGENCY PHYSICIAN Emergency Medicine; FAMILY PHYSICIAN Family Medicine
PROC: 027034Z Dilation of Coronary Artery, One Artery with Drug-eluting Intraluminal Device, Percutaneous Approach (ICD-10-PCS; 2023-12-28)
PROC: B2111ZZ Fluoroscopy of Multiple Coronary Arteries using Low Osmolar Contrast (ICD-10-PCS; 2023-12-28)
PROC: 4A023N7 Measurement of Cardiac Sampling and Pressure, Left Heart, Percutaneous Approach (ICD-10-PCS; 2023-12-28)
PROC: B240ZZ3 Ultrasonography of Single Coronary Artery, Intravascular (ICD-10-PCS; 2023-12-28)
DX: I21.4 Non-ST elevation (NSTEMI) myocardial infarction (principal); I31.39 Other pericardial effusion (noninflammatory); I25.10 Atherosclerotic heart disease of native coronary artery without angina pectoris; I48.0 Paroxysmal atrial fibrillation; I49.5 Sick sinus syndrome; I45.10 Unspecified right bundle-branch block; I10 Essential (primary) hypertension; N40.0 Benign prostatic hyperplasia without lower urinary tract symptoms; Z79.01 Long term (current) use of anticoagulants; Z95.0 Presence of cardiac pacemaker; Z79.82 Long term (current) use of aspirin; Z79.02 Long term (current) use of antithrombotics/antiplatelets
CPT/HCPCS: 93017; 80048; 80053; 80061; 83036; 84484; 85027; 85347; 85730; 92978; 93005; 93306; 93350; 93458; 99285; C1725; C1753; C1769; C1874; C1894; C9600; Q9967

== ENCOUNTER 2024-02-17 06:43 | Outpatient (RCR) | payer MEDICARE, OTHER, SELFPAY | END 2024-02-17 23:59 | disposition home or self-care (01) | LOC: CRHB 06:43 | PROVIDERS: ATTENDING PHYSICIAN Internal Medicine Cardiovascular Disease | DX: I25.10 Atherosclerotic heart disease of native coronary artery without angina pectoris (principal); Z95.5 Presence of coronary angioplasty implant and graft | CPT/HCPCS: 93798; G0422; G0423 ==

== ENCOUNTER 2024-07-16 06:42 | Outpatient (RCR) | payer MEDICARE, OTHER, SELFPAY | END 2024-07-16 23:59 | disposition home or self-care (01) | LOC: RPT 06:42 | PROVIDERS: ATTENDING PHYSICIAN Specialist; FAMILY PHYSICIAN Family Medicine | DX: M25.511 Pain in right shoulder (principal); M75.01 Adhesive capsulitis of right shoulder; Z73.6 Limitation of activities due to disability; M62.81 Muscle weakness (generalized) | CPT/HCPCS: 97110; 97140; 97162 ==

== ENCOUNTER 2024-07-27 09:54 | Outpatient (RCR) | payer MEDICARE, OTHER, SELFPAY | END 2024-08-01 13:02 | disposition home or self-care (01) | LOC: RPT 09:54 | PROVIDERS: ATTENDING PHYSICIAN Specialist; FAMILY PHYSICIAN Family Medicine | DX: M25.511 Pain in right shoulder (principal); M75.01 Adhesive capsulitis of right shoulder; Z73.6 Limitation of activities due to disability; M62.81 Muscle weakness (generalized) | CPT/HCPCS: 97110 ==